=== PATIENT | female | born 1970 | race Caucasian/White ===

== ENCOUNTER → 2016-11-08 | Outpatient (REF) | payer BC ==
[2016-11-08 13:30] LABS: ALBUMIN 4.1 GM/DL (3.2-5.2); ALBUMIN/GLOBULIN RATIO 1.41 (1.00-1.93); ALKALINE PHOSPHATASE 55 U/L (45-117); ALT/SGPT 32 U/L (12-78); ANION GAP 5 MEQ/L (8-16); AST/SGOT 18 U/L (15-37); BILIRUBIN,TOTAL 0.4 MG/DL (0.2-1.0); BLOOD UREA NITROGEN 10 MG/DL (7-18); CALCIUM LEVEL 8.9 MG/DL (8.5-10.1); CARBON DIOXIDE LEVEL 28 MEQ/L (21-32); CHLORIDE LEVEL 108 MEQ/L (98-107); CREATININE FOR GFR 0.71 MG/DL (0.55-1.02); GLOMERULAR FILTRATION RATE > 60.0 (>58); GLUCOSE, FASTING 127 MG/DL (70-105); POTASSIUM SERUM 4.7 MEQ/L (3.5-5.1); SODIUM LEVEL 141 MEQ/L (136-145)
== END ==
LOC: M SFHCPLAZ 12:38
PROVIDERS: ATTEND Nurse Practitioner Family
DX: E11.9 Type 2 diabetes mellitus without complications (principal); E55.9 Vitamin D deficiency, unspecified

== ENCOUNTER → 2016-12-23 | Outpatient (CLI) | payer BC ==
--- NOTE | 2016-12-23 13:08 | REP ---
Clinical: Pain centered at the fifth metatarsal bone Technique: AP, lateral, bilateral oblique views right foot . Findings: The osseous structures and joint spaces are intact and normal. There is no evidence for acute fracture or dislocation. Surrounding soft tissues are unremarkable. No subcutaneous emphysema or radiodense foreign body. Impression: Age-related changes. No acute fracture or dislocation. Signed by Lopez Wells MD 12/23/2016 01:00 P
== END ==
LOC: M WUC 12:45
PROVIDERS: ATTEND Physician Assistant
DX: M79.671 Pain in right foot (principal)

== ENCOUNTER → 2017-02-07 | Outpatient (REF) | payer BC ==
[2017-02-07 12:22] LABS: ALBUMIN/GLOBULIN RATIO 1.48 (1.00-1.93); ALKALINE PHOSPHATASE 65 U/L (45-117); ALT/SGPT 40 U/L (12-78); ANION GAP 7 MEQ/L (8-16); AST/SGOT 18 U/L (15-37); BILIRUBIN,TOTAL 0.4 MG/DL (0.2-1.0); BLOOD UREA NITROGEN 9 MG/DL (7-18); CALCIUM LEVEL 8.9 MG/DL (8.5-10.1); CARBON DIOXIDE LEVEL 26 MEQ/L (21-32); CHLORIDE LEVEL 107 MEQ/L (98-107); CREATININE FOR GFR 0.79 MG/DL (0.55-1.02); GLOMERULAR FILTRATION RATE > 60.0 (>58); GLUCOSE, FASTING 178 MG/DL (70-105); POTASSIUM SERUM 4.8 MEQ/L (3.5-5.1); SODIUM LEVEL 140 MEQ/L (136-145); TOTAL PROTEIN 6.7 GM/DL (6.4-8.2)
== END ==
LOC: M SFHCPLAZ 07:54
PROVIDERS: ATTEND Nurse Practitioner Family
DX: E11.9 Type 2 diabetes mellitus without complications (principal); E55.9 Vitamin D deficiency, unspecified

== ENCOUNTER → 2017-05-09 | Outpatient (REF) | payer BC ==
[2017-05-09 12:21] LABS: ALBUMIN/GLOBULIN RATIO 1.48 (1.00-1.93); ALKALINE PHOSPHATASE 72 U/L (45-117); ALT/SGPT 35 U/L (12-78); ANION GAP 10 MEQ/L (8-16); AST/SGOT 19 U/L (15-37); BILIRUBIN,TOTAL 0.4 MG/DL (0.2-1.0); BLOOD UREA NITROGEN 13 MG/DL (7-18); CALCIUM LEVEL 8.9 MG/DL (8.5-10.1); CARBON DIOXIDE LEVEL 25 MEQ/L (21-32); CHLORIDE LEVEL 109 MEQ/L (98-107); CHOLESTEROL LEVEL 145 MG/DL (<200); CREATININE FOR GFR 0.73 MG/DL (0.55-1.02); FREE T4 0.99 NG/DL (0.76-1.46); GLOMERULAR FILTRATION RATE > 60.0 (>58); GLUCOSE, FASTING 143 MG/DL (70-105); POTASSIUM SERUM 4.5 MEQ/L (3.5-5.1); SODIUM LEVEL 144 MEQ/L (136-145); TOTAL PROTEIN 6.7 GM/DL (6.4-8.2); TRIGLYCERIDES LEVEL 80 MG/DL (<150)
== END ==
LOC: M SFHCPLAZ 08:08
PROVIDERS: ATTEND Nurse Practitioner Family
DX: E11.9 Type 2 diabetes mellitus without complications (principal); E78.2 Mixed hyperlipidemia

== ENCOUNTER → 2017-08-02 | Outpatient (REF) | payer BC ==
[2017-08-02 11:50] LABS: ALBUMIN 3.9 GM/DL (3.2-5.2); ALBUMIN/GLOBULIN RATIO 1.34 (1.00-1.93); ALKALINE PHOSPHATASE 88 U/L (45-117); ALT/SGPT 33 U/L (12-78); ANION GAP 4 MEQ/L (8-16); AST/SGOT 19 U/L (7-37); BILIRUBIN,TOTAL 0.5 MG/DL (0.2-1.0); BLOOD UREA NITROGEN 14 MG/DL (7-18); CALCIUM LEVEL 9.1 MG/DL (8.5-10.1); CARBON DIOXIDE LEVEL 29 MEQ/L (21-32); CHLORIDE LEVEL 106 MEQ/L (98-107); CREATININE FOR GFR 0.66 MG/DL (0.55-1.02); GLOMERULAR FILTRATION RATE > 60.0 (>58); GLUCOSE, FASTING 203 MG/DL (70-105); POTASSIUM SERUM 4.4 MEQ/L (3.5-5.1); SODIUM LEVEL 139 MEQ/L (136-145); TOTAL PROTEIN 6.8 GM/DL (6.4-8.2)
== END ==
LOC: M SFHCPLAZ 08:31
PROVIDERS: ATTEND Nurse Practitioner Family
DX: E11.9 Type 2 diabetes mellitus without complications (principal); E55.9 Vitamin D deficiency, unspecified

== ENCOUNTER → 2017-10-20 | Outpatient (CLI) | payer BC ==
[2017-10-20 17:54] LABS: ALBUMIN 4.5 GM/DL (3.2-5.2); ALBUMIN/GLOBULIN RATIO 1.67 (1.00-1.93); ALKALINE PHOSPHATASE 67 U/L (45-117); ALT/SGPT 28 U/L (12-78); ANION GAP 9 MEQ/L (8-16); AST/SGOT 20 U/L (7-37); BILIRUBIN,TOTAL 0.4 MG/DL (0.2-1.0); BLOOD UREA NITROGEN 18 MG/DL (7-18); CARBON DIOXIDE LEVEL 25 MEQ/L (21-32); CHLORIDE LEVEL 107 MEQ/L (98-107); CREATININE FOR GFR 0.69 MG/DL (0.55-1.02); GLOMERULAR FILTRATION RATE > 60.0 (>58); GLUCOSE, FASTING 107 MG/DL (70-100); POTASSIUM SERUM 4.2 MEQ/L (3.5-5.1); SODIUM LEVEL 141 MEQ/L (136-145); TOTAL PROTEIN 7.2 GM/DL (6.4-8.2)
[2017-10-20 19:31] LABS: ESTIMATED AVERAGE GLUCOSE 157 MG/DL (60-110); HEMOGLOBIN A1c 7.1 %
[2017-10-21 10:10] LABS: TOTAL 25(OH) VITAMIN D 50.5 NG/ML (30.0-100.0)
== END ==
LOC: M WUC 14:45
DX: E11.65 Type 2 diabetes mellitus with hyperglycemia (principal); E55.9 Vitamin D deficiency, unspecified

== ENCOUNTER → 2018-04-28 | Outpatient (CLI) | payer BC ==
[2018-04-28 18:05] LABS: ESTIMATED AVERAGE GLUCOSE 194 MG/DL (60-110); HEMOGLOBIN A1c 8.4 %
[2018-04-28 18:07] LABS: ALBUMIN 4.2 GM/DL (3.2-5.2); ALKALINE PHOSPHATASE 81 U/L (45-117); ALT/SGPT 58 U/L (12-78); ANION GAP 10 MEQ/L (8-16); AST/SGOT 31 U/L (7-37); BILIRUBIN,TOTAL 0.6 MG/DL (0.2-1.0); BLOOD UREA NITROGEN 9 MG/DL (7-18); CALCIUM LEVEL 9.3 MG/DL (8.5-10.1); CARBON DIOXIDE LEVEL 24 MEQ/L (21-32); CHLORIDE LEVEL 106 MEQ/L (98-107); CHOLESTEROL LEVEL 141 MG/DL (<200); CREATININE FOR GFR 0.76 MG/DL (0.55-1.30); GLOMERULAR FILTRATION RATE > 60.0 (>58); GLUCOSE, FASTING 90 MG/DL (70-100); HDL CHOLESTEROL 38 MG/DL (>40); LDL CHOLESTEROL 78.2 MG/DL (<100); NON-HDL-C 103 MG/DL; POTASSIUM SERUM 4.1 MEQ/L (3.5-5.1); SODIUM LEVEL 140 MEQ/L (136-145); TRIGLYCERIDES LEVEL 124 MG/DL (<150)
[2018-04-28 18:21] LABS: CREATININE, URINE 75.7 MG/DL; MALB URINE SIEMENS < 5.0 MG/L; MAU/CREAT RATIO 6.6 MCG/MG (0.0-30.0)
== END ==
LOC: M SMT 14:48
DX: E11.65 Type 2 diabetes mellitus with hyperglycemia (principal); E78.2 Mixed hyperlipidemia
CPT/HCPCS: 80053

== ENCOUNTER → 2018-04-28 | Outpatient (CLI) | payer BC ==
[2018-04-30 08:53] LABS: HEPATITIS B SURFACE ANTIBODY POSITIVE (POSITIVE)
== END ==
LOC: M SMT 14:44
DX: Z00.00 Encounter for general adult medical examination without abnormal findings (principal)
CPT/HCPCS: 86706

== ENCOUNTER → 2018-07-30 | Outpatient (CLI) | payer BC ==
[2018-07-30 17:52] LABS: ALBUMIN 4.3 GM/DL (3.2-5.2); ALBUMIN/GLOBULIN RATIO 1.48 (1.00-1.93); ALKALINE PHOSPHATASE 82 U/L (45-117); ALT/SGPT 38 U/L (12-78); ANION GAP 6 MEQ/L (8-16); AST/SGOT 20 U/L (7-37); BILIRUBIN,TOTAL 0.5 MG/DL (0.2-1.0); BLOOD UREA NITROGEN 12 MG/DL (7-18); CALCIUM LEVEL 9.3 MG/DL (8.5-10.1); CARBON DIOXIDE LEVEL 27 MEQ/L (21-32); CHLORIDE LEVEL 105 MEQ/L (98-107); CREATININE FOR GFR 0.76 MG/DL (0.55-1.30); ESTIMATED AVERAGE GLUCOSE 148 MG/DL (60-110); GLOMERULAR FILTRATION RATE > 60.0 (>58); GLUCOSE, FASTING 91 MG/DL (70-100); HEMOGLOBIN A1c 6.8 %; POTASSIUM SERUM 4.4 MEQ/L (3.5-5.1); SODIUM LEVEL 138 MEQ/L (136-145); TOTAL PROTEIN 7.2 GM/DL (6.4-8.2)
[2018-07-30 17:56] LABS: TOTAL 25(OH) VITAMIN D 24.1 NG/ML (30.0-100.0)
== END ==
LOC: M SMT 14:46
DX: E11.65 Type 2 diabetes mellitus with hyperglycemia (principal); E55.9 Vitamin D deficiency, unspecified
CPT/HCPCS: 80053

== ENCOUNTER → 2018-08-19 | Outpatient (REF) | payer BC ==
[2018-08-23 00:57] LABS: HPV HYBRID CAPTURE II Positive (Negative)
== END ==
LOC: M SFHCPLAZ 20:42
DX: Z12.4 Encounter for screening for malignant neoplasm of cervix (principal)
CPT/HCPCS: G0123

== ENCOUNTER → 2018-09-01 | Outpatient (CLI) | payer BC | LOC: M WHC 14:31 | DX: Z12.31 Encounter for screening mammogram for malignant neoplasm of breast (principal); Z78.0 Asymptomatic menopausal state | CPT/HCPCS: 77067 ==

== ENCOUNTER → 2019-02-21 | Outpatient (CLI) | payer BC ==
[2019-02-21 18:16] LABS: ALBUMIN 4.5 GM/DL (3.2-5.2); ALT/SGPT 37 U/L (12-78); BILIRUBIN,TOTAL 0.6 MG/DL (0.2-1.0); BLOOD UREA NITROGEN 14 MG/DL (7-18); CALCIUM LEVEL 10.2 MG/DL (8.5-10.1); CARBON DIOXIDE LEVEL 29 MEQ/L (21-32); CHLORIDE LEVEL 100 MEQ/L (98-107); CHOLESTEROL LEVEL 174 MG/DL (<200); CHOLESTEROL RISK RATIO 4.833 (<5); CREATININE FOR GFR 0.88 MG/DL (0.55-1.30); GLOMERULAR FILTRATION RATE > 60.0 (>51); GLUCOSE, FASTING 133 MG/DL (70-100); HDL CHOLESTEROL 36 MG/DL (>40); LDL CHOLESTEROL 119 MG/DL (<100); NON-HDL-C 138 MG/DL; POTASSIUM SERUM 4.9 MEQ/L (3.5-5.1); SODIUM LEVEL 137 MEQ/L (136-145); TOTAL PROTEIN 7.4 GM/DL (6.4-8.2); TRIGLYCERIDES LEVEL 94 MG/DL (<150)
[2019-02-21 18:26] LABS: MALB URINE SIEMENS 10.3 MG/L; MAU/CREAT RATIO 6.2 MCG/MG (0.0-30.0)
[2019-02-21 18:27] LABS: HEMOGLOBIN A1c 8.4 %
[2019-02-23 09:35] LABS: TOTAL 25(OH) VITAMIN D 34.4 NG/ML (30.0-100.0)
== END ==
LOC: M WUC 14:53
PROVIDERS: ATTEND Nurse Practitioner Family
DX: E11.65 Type 2 diabetes mellitus with hyperglycemia (principal); E78.2 Mixed hyperlipidemia; E55.9 Vitamin D deficiency, unspecified

== ENCOUNTER → 2019-05-27 | Outpatient (CLI) | payer BC ==
[~2019-05-27] MED LIST: ATOR1TAB19 PO; ESCI20TA PO; GLIM2TAB29 PO; KETO10TAB PO; OMEP-221 PO; TRUL0.5I SQ
[2019-05-27 17:03] LABS: ALBUMIN 4.2 GM/DL (3.2-5.2); ALT/SGPT 32 U/L (12-78); BILIRUBIN,TOTAL 0.4 MG/DL (0.2-1.0); BLOOD UREA NITROGEN 13 MG/DL (7-18); CALCIUM LEVEL 9.6 MG/DL (8.5-10.1); CARBON DIOXIDE LEVEL 28 MEQ/L (21-32); CHLORIDE LEVEL 105 MEQ/L (98-107); CHOLESTEROL LEVEL 163 MG/DL (<200); CHOLESTEROL RISK RATIO 3.975 (<5); CREATININE FOR GFR 0.82 MG/DL (0.55-1.30); GLOMERULAR FILTRATION RATE > 60.0 (>51); GLUCOSE, FASTING 91 MG/DL (70-100); HDL CHOLESTEROL 41 MG/DL (>40); LDL CHOLESTEROL 102 MG/DL (<100); NON-HDL-C 122 MG/DL; POTASSIUM SERUM 4.2 MEQ/L (3.5-5.1); SODIUM LEVEL 139 MEQ/L (136-145); TOTAL PROTEIN 6.8 GM/DL (6.4-8.2); TRIGLYCERIDES LEVEL 99 MG/DL (<150)
[2019-05-27 17:33] LABS: CREATININE, URINE 71.6 MG/DL; MALB URINE SIEMENS < 5.0 MG/L; MAU/CREAT RATIO 6.9 MCG/MG (0.0-30.0)
[2019-05-27 18:38] LABS: HEMOGLOBIN A1c 7.7 %
== END ==
LOC: M WUC 14:53
PROVIDERS: ATTEND Nurse Practitioner Family
DX: E11.65 Type 2 diabetes mellitus with hyperglycemia (principal); E78.2 Mixed hyperlipidemia

== ENCOUNTER 2019-06-12 11:42 | Emergency (ER) | payer BC ==
[~2019-06-12] VITALS: Ht 154.9 cm; Wt 71.5 kg
[2019-06-12] MEDS ORDERED: KETOROLAC 60 MG/2 ML VIAL (J1885) IM ONE (12:00)
--- NOTE | 2019-06-12 12:30 | REP ---
RIGHT ELBOW, FOUR VIEWS: There is no evidence of an acute fracture, dislocation or intrinsic bone disease. IMPRESSION: No fracture or dislocation. Electronically Signed by Valdez Willis MD 06/12/2019 06:47 P
--- NOTE | 2019-06-12 12:31 | REP ---
RIGHT FOREARM, TWO VIEWS: There is no evidence of an acute fracture, dislocation or intrinsic bone disease. IMPRESSION: No fracture or dislocation. Electronically Signed by Valdez Willis MD 06/12/2019 06:48 P
[2019-06-12] MEDS ORDERED: KETO10TAB PO (12:51)
[2019-06-12 12:59] VITALS: BP 120/81
== END 2019-06-12 13:02 | disposition home or self-care (01) ==
LOC: M ED 11:42
DX: S50.01XA Contusion of right elbow, initial encounter (principal); S50.11XA Contusion of right forearm, initial encounter; W17.89XA Other fall from one level to another, initial encounter; Y92.018 Other place in single-family (private) house as the place of occurrence of the external cause
CPT/HCPCS: 73080; 73090; 96372; 99283; J1885

== ENCOUNTER → 2019-08-26 | Outpatient (CLI) | payer BC ==
[2019-08-26 12:41] LABS: HEMOGLOBIN A1c 8.5 %
[2019-08-26 12:50] LABS: ALBUMIN 3.6 GM/DL (3.2-5.2); ALT/SGPT 30 U/L (12-78); BILIRUBIN,TOTAL 0.3 MG/DL (0.2-1.0); BLOOD UREA NITROGEN 9 MG/DL (7-18); CALCIUM LEVEL 9.4 MG/DL (8.5-10.1); CARBON DIOXIDE LEVEL 31 MEQ/L (21-32); CHLORIDE LEVEL 105 MEQ/L (98-107); CREATININE FOR GFR 0.72 MG/DL (0.55-1.30); GLOMERULAR FILTRATION RATE > 60.0 (>51); GLUCOSE, FASTING 145 MG/DL (70-100); POTASSIUM SERUM 4.5 MEQ/L (3.5-5.1); SODIUM LEVEL 140 MEQ/L (136-145); TOTAL PROTEIN 6.7 GM/DL (6.4-8.2)
[2019-08-26 12:59] LABS: TOTAL 25(OH) VITAMIN D 25.2 NG/ML (30.0-100.0)
== END ==
LOC: M WUC 09:24
PROVIDERS: ATTEND Nurse Practitioner Family
DX: E11.65 Type 2 diabetes mellitus with hyperglycemia (principal); E55.9 Vitamin D deficiency, unspecified

== ENCOUNTER 2019-09-08 09:56 | Day surgery (SDC) | payer BC ==
[~2019-09-08] VITALS: Ht 154.9 cm; Wt 69.9 kg
[~2019-09-08 09:56] MED LIST changes: +NS 1,000 ML IV ONE
[2019-09-08] MEDS ORDERED: PROPOFOL 200 MG/20 ML VIAL As Ordered ONE (10:37)
[2019-09-08] MEDS ORDERED: LIDOCAINE 2% INJ 100 MG/5 ML SDV (FOR ANES.) As Ordered ONE (10:37)
[2019-09-08] MEDS ORDERED: fentaNYL 100 MCG/2 ML INJECTION (J3010) As Ordered ONE (11:19)
--- NOTE | 2019-09-08 12:51 | ROOR ---
Patient Name: Benson Klein Procedure Date: 09/08/2019 11:49 AM Date of : 1970 Age: 49 Room: [facility] Gender: Female Note Status: Finalized Procedure: Upper GI endoscopy Indications: Dyspepsia, Heartburn, Suspected gastro-esophageal reflux disease Providers: Inocencio Morris MD Referring MD: Faina Norman NP Requesting Provider: Medicines: Monitored Anesthesia Care Complications: No immediate complications. Procedure: Pre-Anesthesia Assessment: - Prior to the procedure, a History and Physical was performed, and patient medications and allergies were reviewed. The patient is competent. The risks and benefits of the procedure and the sedation options and risks were discussed with the patient. All questions were answered and informed consent was obtained. Patient identification and proposed procedure were verified by the physician, the nurse and the anesthesiologist in the procedure room. Mental Status Examination: alert and oriented. Airway Examination: normal oropharyngeal airway and neck mobility. Respiratory Examination: clear to auscultation. CV Examination: normal. Prophylactic Antibiotics: The patient does not require prophylactic antibiotics. Prior Anticoagulants: The patient has taken no previous anticoagulant or antiplatelet agents. ASA Grade Assessment: II - A patient with mild systemic disease. After reviewing the risks and benefits, the patient was deemed in satisfactory condition to undergo the procedure. The anesthesia plan was to use monitored anesthesia care (MAC). Immediately prior to administration of medications, the patient was re-assessed for adequacy to receive sedatives. The heart rate, respiratory rate, oxygen saturations, blood pressure, adequacy of pulmonary ventilation, and response to care were monitored throughout the procedure. The physical status of the patient was re-assessed after the procedure. The Endoscope was introduced through the mouth, and advanced to the second part of duodenum. The upper GI endoscopy was accomplished without difficulty. The patient tolerated the procedure well. Findings: Two tongues of salmon-colored mucosa were present from 39 to 41 cm. No other visible abnormalities were present. The maximum longitudinal extent of these esophageal mucosal changes was 2 cm in length. Biopsies were taken with a cold forceps for histology. Verification of patient identification for the specimen was done by the physician and nurse using the patient's name, date and medical record number. Estimated blood loss was minimal. Scattered moderate inflammation characterized by erythema, friability and granularity was found in the gastric antrum. Biopsies were taken with a cold forceps for Helicobacter pylori testing. Scattered moderate inflammation characterized by erosions, friability and granularity was found in the duodenal bulb and in the second portion of the duodenum. Biopsies for histology were taken with a cold forceps for evaluation of celiac disease. Impression: - [place]-colored mucosa suspicious for short-segment Lr's esophagus. Biopsied. - Gastritis. Biopsied. - Duodenitis. Biopsied. Recommendation: - Patient has a contact number available for emergencies. The signs and symptoms of potential delayed complications were discussed with the patient. Return to normal activities tomorrow. Written discharge instructions were provided to the patient. - Resume previous diet. - Follow an antireflux regimen. - Use Prilosec (omeprazole) 40 mg PO Daily - to be taken naturopathic oncology provider on empty stomach. - Await pathology results. - Repeat upper endoscopy in 1 year to evaluate the response to therapy and for surveillance based on pathology results. - Telephone GI clinic for pathology results in 2 weeks. - Return to primary care physician. Inocencio Morris MD Inocencio Morris MD 09/08/2019 12:50:39 PM Electronically signed by Inocencio Morris MD Number of Addenda: 0 Note Initiated On: 09/08/2019 11:49 AM Estimated Blood Loss: Estimated blood loss was minimal.
--- NOTE | 2019-09-08 12:53 | ROOR ---
Patient Name: Benson Klein Procedure Date: 09/08/2019 11:49 AM Date of : 1970 Age: 49 Room: [facility] Gender: Female Note Status: Finalized Procedure: Colonoscopy Indications: Screening for colorectal malignant neoplasm Providers: Inocencio Morris MD Referring MD: Faina Norman NP Requesting Provider: Medicines: Monitored Anesthesia Care Complications: No immediate complications. Procedure: Pre-Anesthesia Assessment: - Prior to the procedure, a History and Physical was performed, and patient medications and allergies were reviewed. The patient is competent. The risks and benefits of the procedure and the sedation options and risks were discussed with the patient. All questions were answered and informed consent was obtained. Patient identification and proposed procedure were verified by the physician, the nurse and the anesthesiologist in the procedure room. Mental Status Examination: alert and oriented. Airway Examination: normal oropharyngeal airway and neck mobility. Respiratory Examination: clear to auscultation. CV Examination: normal. Prophylactic Antibiotics: The patient does not require prophylactic antibiotics. Prior Anticoagulants: The patient has taken no previous anticoagulant or antiplatelet agents. ASA Grade Assessment: II - A patient with mild systemic disease. After reviewing the risks and benefits, the patient was deemed in satisfactory condition to undergo the procedure. The anesthesia plan was to use monitored anesthesia care (MAC). Immediately prior to administration of medications, the patient was re-assessed for adequacy to receive sedatives. The heart rate, respiratory rate, oxygen saturations, blood pressure, adequacy of pulmonary ventilation, and response to care were monitored throughout the procedure. The physical status of the patient was re-assessed after the procedure. The Colonoscope was introduced through the anus and advanced to the terminal ileum, with identification of the appendiceal orifice and IC valve. The colonoscopy was performed without difficulty. The patient tolerated the procedure well. The quality of the bowel preparation was good. The terminal ileum, ileocecal valve, appendiceal orifice, and rectum were photographed. Scope insertion time was 3 minutes. Scope withdrawal time was 9 minutes. The total duration of the procedure was 12 minutes. Findings: The perianal and digital rectal examinations were normal. The terminal ileum appeared normal. Four sessile polyps were found in the recto-sigmoid colon and ascending colon. The polyps were 6 to 10 mm in size. These polyps were removed with a cold snare. Resection and retrieval were complete. Verification of patient identification for the specimen was done by the physician and nurse using the patient's name, date and medical record number. Estimated blood loss was minimal. Multiple small and large-mouthed diverticula were found from sigmoid to descending colon. There was no evidence of diverticular bleeding. Non-bleeding external and internal hemorrhoids were found during retroflexion. The hemorrhoids were medium-sized. Impression: - The examined portion of the ileum was normal. - Four 6 to 10 mm polyps at the recto-sigmoid colon and in the ascending colon, removed with a cold snare. Resected and retrieved. - Moderate diverticulosis from sigmoid to descending colon. There was no evidence of diverticular bleeding. - Non-bleeding external and internal hemorrhoids. Recommendation: - Patient has a contact number available for emergencies. The signs and symptoms of potential delayed complications were discussed with the patient. Return to normal activities tomorrow. Written discharge instructions were provided to the patient. - High fiber diet. - Continue present medications. - Await pathology results. - Repeat colonoscopy in 3 - 5 years for surveillance based on pathology results. - Telephone GI clinic for pathology results in 2 weeks. - Return to primary care physician. Inocencio Morris MD Inocencio Morris MD 09/08/2019 12:53:07 PM Electronically signed by Inocencio Morris MD Number of Addenda: 0 Note Initiated On: 09/08/2019 11:49 AM Estimated Blood Loss: Estimated blood loss was minimal.
[2019-09-08 13:00] VITALS: BP 166/88
== END 2019-09-08 13:15 | disposition home or self-care (01) ==
LOC: M OPP 09:56
PROVIDERS: ATTEND Internal Medicine Gastroenterology
DX: Z12.11 Encounter for screening for malignant neoplasm of colon (principal); K64.8 Other hemorrhoids; K63.5 Polyp of colon; K57.30 Diverticulosis of large intestine without perforation or abscess without bleeding; K22.8 Other specified diseases of esophagus; K29.70 Gastritis, unspecified, without bleeding; K29.80 Duodenitis without bleeding; R10.13 Epigastric pain; E11.9 Type 2 diabetes mellitus without complications; Z79.84 Long term (current) use of oral hypoglycemic drugs; Z79.899 Other long term (current) drug therapy; Z88.8 Allergy status to other drugs, medicaments and biological substances
CPT/HCPCS: 43239; 45385; 88305; J3010

== ENCOUNTER → 2019-10-05 | Outpatient (CLI) | payer BC ==
[~2019-10-05] MED LIST changes: -NS 1,000 ML IV ONE
--- NOTE | 2019-10-05 17:28 | REPMRS ---
Patient History The patient states she had a clinical breast exam in 2019. Family history of breast cancer at age 50 or over in maternal aunt. Digital Woman Screen Mammo: October 05, 2019 - Exam #: [id number] Bilateral CC and MLO view(s) were taken. Technologist: Destiny Rodríguez, Technologist Prior study comparison: September 01, 2018, bilateral digital woman screen mammo performed at [facility] and Breast [facility] [place]. March 23, 2009, bilateral digital woman screen mammo, performed at [facility]. FINDINGS: There are scattered fibroglandular densities. There has been no change in the appearance of the mammogram from the prior studies. There is a mild amount of scattered fibroglandular density which is fairly symmetric. There is no interval development of dominant mass, architectural distortion, or grouped microcalcification suggestive of malignancy. 3-D tomosynthesis shows no additional findings. Assessment: BI-RADS/ACR category 1 mammogram. Negative Mammogram. Recommendation Routine screening mammogram of both breasts in 1 year (for women over age 40). This patient's Lifetime Breast Cancer Risk is estimated at 11.5 %. This mammogram was interpreted with the aid of an FDA-approved computer-aided dectection system. Electronically Signed By: Torres Bojorquez MD 10/05/19 [id number]
== END ==
LOC: M WHC 15:23
PROVIDERS: ATTEND Nurse Practitioner Family
DX: Z12.31 Encounter for screening mammogram for malignant neoplasm of breast (principal); Z80.3 Family history of malignant neoplasm of breast

== ENCOUNTER → 2019-12-27 | Outpatient (CLI) | payer BC ==
[2019-12-27 17:14] LABS: BLOOD UREA NITROGEN 13 MG/DL (7-18); CALCIUM LEVEL 9.4 MG/DL (8.5-10.1); CARBON DIOXIDE LEVEL 28 MEQ/L (21-32); CHLORIDE LEVEL 107 MEQ/L (98-107); GLOMERULAR FILTRATION RATE > 60.0 (>51); GLUCOSE, FASTING 107 MG/DL (70-100); POTASSIUM SERUM 4.2 MEQ/L (3.5-5.1); SODIUM LEVEL 139 MEQ/L (136-145)
[2019-12-27 17:35] LABS: HEMOGLOBIN A1c 10.4 %
[2019-12-28 10:01] LABS: TOTAL 25(OH) VITAMIN D 27.9 NG/ML (30.0-100.0)
== END ==
LOC: M WUC 15:00
PROVIDERS: ATTEND Nurse Practitioner Family
DX: E11.65 Type 2 diabetes mellitus with hyperglycemia (principal); E55.9 Vitamin D deficiency, unspecified

== ENCOUNTER → 2020-03-23 | Outpatient (REF) | payer BC ==
[2020-03-23 18:14] LABS: HEMOGLOBIN A1c 10.2 %
[2020-03-23 18:17] LABS: ALBUMIN 4.1 GM/DL (3.2-5.2); ALT/SGPT 32 U/L (12-78); BILIRUBIN,TOTAL 0.3 MG/DL (0.2-1.0); BLOOD UREA NITROGEN 17 MG/DL (7-18); CALCIUM LEVEL 9.6 MG/DL (8.5-10.1); CARBON DIOXIDE LEVEL 31 MEQ/L (21-32); CHLORIDE LEVEL 102 MEQ/L (98-107); CREATININE FOR GFR 0.77 MG/DL (0.55-1.30); GLOMERULAR FILTRATION RATE > 60.0 (>51); GLUCOSE, FASTING 204 MG/DL (70-100); POTASSIUM SERUM 5.1 MEQ/L (3.5-5.1); SODIUM LEVEL 134 MEQ/L (136-145)
[2020-03-23 18:24] LABS: MALB URINE SIEMENS < 5.0 MG/L; MAU/CREAT RATIO 33.3 MCG/MG (0.0-30.0); TOTAL 25(OH) VITAMIN D 45.5 NG/ML (30.0-100.0)
== END ==
LOC: M PLALAB 14:41
PROVIDERS: ATTEND Nurse Practitioner Family
DX: E11.65 Type 2 diabetes mellitus with hyperglycemia (principal); E55.9 Vitamin D deficiency, unspecified

== ENCOUNTER → 2020-04-18 | Outpatient (REF) | payer BC ==
[2020-06-24 15:29] LABS: GLUCOSE, FASTING SEE SEPARATE REPORT MG/DL
[2020-06-24 15:30] LABS: MALB URINE SIEMENS SEE SEPARATE REPORT MG/L
== END ==
LOC: M SFHCPLAZ 10:15
PROVIDERS: ATTEND Nurse Practitioner Family
DX: E11.9 Type 2 diabetes mellitus without complications (principal)

== ENCOUNTER → 2020-05-31 | Outpatient (REF) | payer BC ==
[2020-05-31 18:42] LABS: APPEARANCE, URINE CLEAR (CLEAR); BACTERIA, URINE AUTO NEGATIVE (NEGATIVE); BILIRUBIN, URINE AUTO NEGATIVE (NEGATIVE); BLOOD, URINE BLOOD NEGATIVE (NEGATIVE); COLOR, URINE STRAW (YELLOW); GLUCOSE, URINE (UA) AUTO 3+ mg/dL (NEGATIVE); KETONE, URINE AUTO NEGATIVE (NEGATIVE); LEUKOCYTE ESTERASE, URINE AUTO NEGATIVE (NEGATIVE); NITRITE, URINE AUTO NEGATIVE (NEGATIVE); PROTEIN, URINE AUTO NEGATIVE (NEGATIVE); RBC, URINE AUTO 0 /HPF (0-3); SPECIFIC GRAVITY URINE AUTO 1.001 (1.002-1.035); SQUAMOUS EPITHELIAL CELL UR AU 0 /HPF (0-6); UROBILINOGEN, URINE AUTO 0.2 mg/dL (0.0-2.0); WBC, URINE AUTO 0 /HPF (0-3)
== END ==
LOC: M LAB REF 16:30
PROVIDERS: ATTEND Physician Assistant Medical
DX: N39.0 Urinary tract infection, site not specified (principal)

== ENCOUNTER → 2020-07-13 | Outpatient (CLI) | payer BC ==
[~2020-07-13] MED LIST changes: -ESCI20TA PO; +ESCI20TA16 PO
[2020-07-13 17:47] LABS: ALBUMIN 4.3 GM/DL (3.2-5.2); ALT/SGPT 32 U/L (12-78); BILIRUBIN,TOTAL 0.6 MG/DL (0.2-1.0); BLOOD UREA NITROGEN 11 MG/DL (7-18); CALCIUM LEVEL 9.8 MG/DL (8.5-10.1); CARBON DIOXIDE LEVEL 30 MEQ/L (21-32); CHLORIDE LEVEL 102 MEQ/L (98-107); CREATININE FOR GFR 0.69 MG/DL (0.55-1.30); GLOMERULAR FILTRATION RATE > 60.0 (>51); GLUCOSE, FASTING 185 MG/DL (70-100); POTASSIUM SERUM 4.9 MEQ/L (3.5-5.1); SODIUM LEVEL 134 MEQ/L (136-145); TOTAL PROTEIN 7.2 GM/DL (6.4-8.2)
[2020-07-13 17:54] LABS: HEMOGLOBIN A1c 10.5 %
== END ==
LOC: M PLALAB 14:33
PROVIDERS: ATTEND Nurse Practitioner Family
DX: E11.65 Type 2 diabetes mellitus with hyperglycemia (principal); E78.2 Mixed hyperlipidemia

== ENCOUNTER → 2020-10-06 | Outpatient (REF) | payer BC ==
[2020-10-06 16:35] LABS: CREATININE, URINE 58.2 MG/DL; MALB URINE SIEMENS < 5.0 MG/L; MAU/CREAT RATIO 8.5 MCG/MG (0.0-30.0)
[2020-10-06 17:20] LABS: HEMOGLOBIN A1c 11.7 %
[2020-10-06 17:24] LABS: ALBUMIN 3.9 GM/DL (3.2-5.2); ALT/SGPT 31 U/L (12-78); BILIRUBIN,TOTAL 0.3 MG/DL (0.2-1.0); BLOOD UREA NITROGEN 16 MG/DL (7-18); CALCIUM LEVEL 9.3 MG/DL (8.5-10.1); CARBON DIOXIDE LEVEL 29 MEQ/L (21-32); CHLORIDE LEVEL 101 MEQ/L (98-107); CREATININE FOR GFR 0.92 MG/DL (0.55-1.30); GLOMERULAR FILTRATION RATE > 60.0 (>51); GLUCOSE, FASTING 451 MG/DL (70-100); POTASSIUM SERUM 4.7 MEQ/L (3.5-5.1); SODIUM LEVEL 135 MEQ/L (136-145); TOTAL 25(OH) VITAMIN D 42.6 NG/ML (30.0-100.0); TOTAL PROTEIN 6.4 GM/DL (6.4-8.2)
== END ==
LOC: M PLALAB 14:04
PROVIDERS: ATTEND Nurse Practitioner Family
DX: E11.65 Type 2 diabetes mellitus with hyperglycemia (principal); E55.9 Vitamin D deficiency, unspecified

== ENCOUNTER → 2020-11-07 | Outpatient (REF) | payer BC ==
[2020-11-07 14:29] LABS: ALBUMIN 4.4 GM/DL (3.2-5.2); ALT/SGPT 34 U/L (12-78); BILIRUBIN,TOTAL 0.4 MG/DL (0.2-1.0); BLOOD UREA NITROGEN 15 MG/DL (7-18); CALCIUM LEVEL 9.6 MG/DL (8.5-10.1); CARBON DIOXIDE LEVEL 25 MEQ/L (21-32); CHLORIDE LEVEL 101 MEQ/L (98-107); CREATININE FOR GFR 0.82 MG/DL (0.55-1.30); GLOMERULAR FILTRATION RATE > 60.0 (>51); GLUCOSE, FASTING 252 MG/DL (70-100); HEMOGLOBIN A1c 11.1 %; POTASSIUM SERUM 4.7 MEQ/L (3.5-5.1); SODIUM LEVEL 136 MEQ/L (136-145)
== END ==
LOC: M PLALAB 11:13
PROVIDERS: ATTEND Nurse Practitioner Family
DX: E11.65 Type 2 diabetes mellitus with hyperglycemia (principal)

== ENCOUNTER → 2020-11-13 | Outpatient (CLI) | payer BC ==
[~2020-11-13] MED LIST changes: +ESCI5SOL3 PO; +OZEM2INJ SC
== END ==
LOC: M LABSMTC 11:06
PROVIDERS: ATTEND Anesthesiology
DX: Z01.818 Encounter for other preprocedural examination (principal); Z11.52 Encounter for screening for COVID-19

== ENCOUNTER → 2020-11-16 | Outpatient (REF) | payer BC | LOC: M SFHCPLAZ 12:58 | PROVIDERS: ATTEND Nurse Practitioner Family | DX: Z12.4 Encounter for screening for malignant neoplasm of cervix (principal) | CPT/HCPCS: 87624; G0123 ==

== ENCOUNTER 2020-11-18 06:45 | Day surgery (SDC) | payer BC ==
[~2020-11-18] VITALS: Ht 154.9 cm; Wt 68.9 kg
--- OUTSIDE RECORDS SUMMARY | 2020-11-18 06:49 | CCD ---
Author Author [facility] Organization [facility] Address Unknown Phone Unavailable Care Team Providers Care Rubbish Collector Name Role Phone Faina Norman PROBLEMS Type Condition ICD9-CM Code [id number] Code Onset Dates Condition S tatus W/U Status Risk SNOMED Code Notes Problem Vitamin D deficiency E55.9 Active confirmed 29253087 Problem Mixed hyperlipidemia E78.2 Active confirmed 352206961 Problem Dysmetabolic syndrome X E88.81 Active confirmed 740215168 Problem Type 2 diabetes mellitus wit h hyperglycemia, without long-term current use of insulin E11.65 Active confirmed 80139899 Problem Gastroesophageal reflux disease without esophagitis K21.9 Active confirmed 467460324 Problem Influenza vaccination declined Z28.21 Active confir med 888239630 Problem Non morbid obesity due to excess calories E66.09 Active confirmed 466666834 Problem Allergic rhinitis, unspecified allergic rhinitis type J30.9 Active confirmed 98393304 Problem DM w/o complication type II E11.9 Active confirmed 07908202 Problem Pain, joint, multiple sites M25.50 Active confirmed 76748333 Problem Anxiety F41.9 Active confirmed 16266989 ALLERGIES Allergen (clinical drug ingredient) Drug/Non Drug Allergy do cumented on EMR Reaction Allergy Type Onset Date Status Dulaglutide nausea Drug Allergy Active metformin Metformin HCl([facility] Code:[address]-10) diarrhea Drug Gabriel rgy Active ENCOUNTERS from 1970 to 2020-11-12 Encounter Location Date Provider Diagnosis [address] [address] 16 Oct, 2 021 Faina Norman Type 2 diabetes mellitus with hyperglycemia, without long-term current use of insulin E11.65 ; Mixed hyperlipidemia E78.2 ; Gastroesophageal reflux disease without esophagitis K21.9 ; Vitamin D deficiency E55.9 and Anxiety F41.9 IMMUNIZATIONS Vaccine Route Administration Date Status COVID-19 dose #1 given elsewhere Unspecified Unknown Oct 07, 2020 Administered Influenza 18 yrs & older Flublok Unknown Oct 07, 2020 Administered Influenza 18 yrs & older Flublok Unknown Jul 24, 2018 Administered TDAP 0.5mL (Boostrix) Unknown Jul 28, 2015 Administer ed Influenza 6mo & up Fluzone Unknown Jul 23, 2017 Admin istered Influenza 6mo & up Fluzone Unknown Jul 16, 2017 Admin istered Influenza 6mo & up Fluzone Unknown Jun 29, 2016 Admin istered Influenza 6mo & up Fluzone Unknown Jul 28, 2015 Admin istered Influenza 6mo & up Fluzone Unknown Jul 06, 2014 Admin istered SOCIAL HISTORY Tobacco Use: Social History Observation Description Date Details (start date - stop date) Former Smoker Sex Assigned At : Social History Observation Description Sex Assigned At Unknown Education: Question Answer Notes Level of Education: High School Audit Question Answer Notes Total Score: 0 Interpretation: Alcohol Education Language: Question Answer Notes Languages spoken: Nicarag[place] Jehovah'S Witness: Question Answer Notes [employer] Sexual Hx: Question Answer Notes Had sex in the last 12 months (vaginal, oral, or anal)? Yes Have you ever had an STD? No with Men only Use protection? No Drug and Alcohol Question Answer Notes Total Score: 0 Interpretation: No problems reported Alcohol Screening: Question Answer Notes Did you have a drink containing alcohol in the past year? No Points 0 Interpretation Negative BMI Care Goal Follow-Up Question Answer Notes Above Normal BMI Follow-Up Giving encouragement to exercise Tobacco Use: Question Answer Notes Are you a: former smoker How long has it been since you last smoked? 1-5 years REASON FOR REFERRAL No Information VITAL SIGNS Weight 157 lbs Oct, Height 61.25 in Oct, BMI 29.42 kg/m2 Oct, Heart Rate 79 /min Oct, Respiratory Rate 20 /min Oct, Temperature 98 degrees Fahrenheit Oct, Oximetry 98 Oct, Blood pressure systolic 110 mm Hg Oct, Blood pressure diastolic 70 mm Hg Oct, MEDICATIONS Medication SIG (Take, Route, Frequency, Duration) Notes Start Da te End Date Status Levemir FlexTouch 100 UNIT/ML 10 units Subcutaneous Daily for 90 day(s) Oct, Active Pen [place] 12/06" 31G X 5 MM dx e11.65 subcutaneously DAILY with levemir, and weekly with ozempic for 90 day(s) Active Ergocalciferol 1.25 MG (66131 UT) 1 capsule Orally weekly with meal Active Naprosyn 500 MG 1 tablet with food or milk a s needed Orally every 12 hrs for 30 day(s) Oct, Active Blood Glucose Test - as directed In Vitro Daily Dx:E11.9 for 30 day(s ) Active Lancets - as directed intradermally Daily DX:E11.( for 30 day(s) Active Escitalopram Oxalate 20 MG 1 tab Orally Once a day Active Pantoprazole Sodium 40 MG 1 tablet Orally Once a day Active Ozempic (0.25 or 0.5 MG/DOSE) 2 MG/1.5ML 0.5mg Subcuta neous once weekly x 4 weeks for 30 Days Active Aspirin Adult Low Dose 81 MG 1 tablet Orally Once a day Active Multivitamins 1 tab Orally daily Act alisa Glimepiride 2 MG 1 tablet with meals Orally twice a day Active Acetaminophen 500 mg 1-2 as needed Orally every 8 hrs for 30 da y(s) May, Active Vitamin D 1000 UNIT 2 tabs with meal Orally Once a day Active Atorvastatin Calcium 10 MG 1 tablet Orally Once a day Active Blood Glucose System [place] - as directed _ Dx:E11.9 for 30 day(s) Active PROCEDURES No Information RESULTS No Results REASON FOR VISIT 4-6WK F/U MEDICAL (GENERAL) HISTORY Type Description Date Medical History reflux Medical History impaired fasting glucose/ metabolic synd mellissa Medical History Esophageal reflux/ Hiatal hernia Medical History vitamin D deficiency Medical History hyperlipidemia, mixed Medical History Type 2 diabetes Surgical History tubal 1998 Surgical History colonoscopy with polyp resection, adenom atous 09/10 Goals Section No Information Health Concerns No Information MEDICAL EQUIPMENT No Information MENTAL STATUS No Information FUNCTIONAL STATUS No Information ASSESSMENTS Encounter Date Diagnosis Assessment Notes Treatment Notes Treatm ent Clinical Notes Oct, Type 2 diabetes mellitus wit h hyperglycemia, without long-term current use of insulin (ICD-10 - E11.65) advised on administration and side effects of medication prescribed and pt verbalized understanding. was referred to [facility], add referral to RD Oct, Mixed hyperlipidemia (ICD-10 - E78.2) due for lipids Oct, Gastroesophageal reflux dise ase without esophagitis (ICD-10 - K21.9) is scheduled for EGD on 11/18 and GI f/up Oct, Vitamin D deficiency (ICD-10 - E55.9) Oct, Anxiety (ICD-10 - F41.9) PLAN OF TREATMENT Medication Medication Name Sig Start Date Stop Date Escitalopram Oxalate 20 MG 1 tab Orally Once a day Vitamin D 1000 UNIT 2 tabs with meal Orally Once a day Glimepiride 2 MG 1 tablet with meals Orally twice a day Atorvastatin Calcium 10 MG 1 tablet Orally Once a day Levemir FlexTouch 100 UNIT/ML 10 units Subcutaneous Daily fo r 90 day(s) Oct, Ozempic (0.25 or 0.5 MG/DOSE) 2 MG/1.5ML 0.5mg Subcuta neous once weekly x 4 weeks for 30 Days Ergocalciferol 1.25 MG (94312 UT) 1 capsule Orally weekly with m eal Pen [place] 12/06" 31G X 5 MM dx e11.65 subcutaneously DAILY with levemir, and weekly with ozempic for 90 day(s) Pantoprazole Sodium 40 MG 1 tablet Orally Once a day Treatment Notes Assessment Notes Clinical Notes Type 2 diabetes mellitus with hyperglyce natasha, without long-term current use of insulin advised on administration and side effec ts of medication prescribed and pt verbalized understanding. was referred to OANH Ayoub, add referral to RD Mixed hyperlipidemia due for lipids Gastroesophageal reflux disease without esophagitis is scheduled for EGD on 11/18 and GI f/up Future Test Test Name Order Date LIPID PANEL (CARDIAC RISK) [id number] Comprehensive Metabolic Profile (CMP) [id number] HEMOGLOBIN A1c [id number] VITAMIN D 25-HYDROXY [id number] Next Appt Details next avail for [employer] MARINE Reason:pap Provider Name:Faina Norman, 2020-11-16 07:3 0:00 AM, [facility] [place], [address], Provider Name:Faina Norman 2020-12-13 04:0 0:00 PM, [address] [place], [address], Follow Up:next avail for GYNpap Insurance Providers Payer Name Payer Address Payer Phone Insured Name Patient Relati onship to Insured Coverage Start Date Coverage End Date BCBS ALEXIA MCKEON PPO [phone] [facility] [place] [facility] [id number] [address] self
--- OUTSIDE RECORDS SUMMARY | 2020-11-18 06:50 | CCD ---
Author Author [facility] Organization [facility] Address Unknown Phone Unavailable Care Team Providers Care Information Security Officer Name Role Phone JanYannick doss Unavailable PROBLEMS Type Condition ICD9-CM Code [id number] Code Onset Dates Condition S tatus SNOMED Code Notes Problem Vitamin D deficiency E55.9 Active 23781947 Problem Mixed hyperlipidemia E78.2 Active 278679661 Problem Dysmetabolic syndrome X E88.81 Active 97864797 7 Problem Type 2 diabetes mellitus wit h hyperglycemia, without long-term current use of insulin E11.65 Active 23798168 Problem Gastroesophageal reflux disease without esophagitis K21.9 Active 788420871 Problem Influenza vaccination declined Z28.21 Active 3 20184382 Problem Non morbid obesity due to excess calories E66.09 Active 519804906 Problem Allergic rhinitis, unspecified allergic rhinitis type J30.9 Active 62618579 Problem DM w/o complication type II E11.9 Active 4405 4006 Problem Pain, joint, multiple sites M25.50 Active 3567 8005 Problem Anxiety F41.9 Active 94221508 ALLERGIES Allergen (clinical drug ingredient) Drug/Non Drug Allergy do cumented on EMR Reaction Allergy Type Onset Date Status Dulaglutide nausea Drug Allergy Active metformin Metformin HCl([facility] Code:[address]-54) diarrhea Drug Gabriel rgy Active ENCOUNTERS from 1969 to 2020-10-08 Encounter Location Date Provider Diagnosis [facility] [address] [address] [place] [address] 14 Sep, 2020 Gerardo Baires IMMUNIZATIONS Vaccine Route Administration Date Status COVID-19(given elsewhere) Unspecified Unknown Oct 07 Administered Influenza (18 yrs & older) Flublok Unknown Oct 07, 2020 Administered Influenza (18 yrs & older) Flublok Unknown Jul 24, 2018 Administered TDAP 0.5mL (Boostrix) Unknown Jul 28, 2015 Administer ed Influenza (6mo & up) Fluzone Unknown Jul 23, 2017 Adm inistered Influenza (6mo & up) Fluzone Unknown Jul 16, 2017 Adm inistered Influenza (6mo & up) Fluzone Unknown Jun 29, 2016 Adm inistered Influenza (6mo & up) Fluzone Unknown Jul 28, 2015 Adm inistered Influenza (6mo & up) Fluzone Unknown Jul 06, 2014 Adm inistered SOCIAL HISTORY Tobacco Use: Social History Observation Description Date Details (start date - stop date) Former Smoker Sex Assigned At : Social History Observation Description Sex Assigned At Unknown Education: Question Answer Notes Level of Education: High School Audit Question Answer Notes Total Score: 0 Interpretation: Alcohol Education Language: Question Answer Notes Languages spoken: French Gnosticist: Question Answer Notes Gnosticist 08 Roman Catholic Sexual Hx: Question Answer Notes Had sex [...] REASON FOR REFERRAL No Information VITAL SIGNS No information MEDICATIONS Medication SIG (Take, Route, Frequency, Duration) Notes Start Da te End Date Status Naprosyn 500 MG 1 tablet with food or milk a s needed Orally every 12 hrs for 30 day(s) Oct, Active Atorvastatin Calcium 10 MG 1 tablet Orally Once a day Active Lancets - as directed intradermally Daily DX:E11.( for 30 day(s) Active Vitamin D 1000 UNIT 2 tabs with meal Orally Once a day Active Glimepiride 2 MG 1 tablet with meals Orally twice a day Active Omeprazole 40 MG 1 capsule Orally Once a day Active Acetaminophen 500 mg 1-2 as needed Orally every 8 hrs for 30 da y(s) May, Active Multivitamins 1 tab Orally daily Act alisa Blood Glucose Test - as directed In Vitro Daily Dx:E11.9 for 30 day(s ) Active Aspirin Adult Low Dose 81 MG 1 tablet Orally Once a day Active Blood Glucose System [place] - as directed _ Dx:E11.9 for 30 day(s) Active Pen [place] 3/16" 31G X 5 MM dx e11.65 subcutaneously weekly for 90 day(s) Sep, Active Escitalopram Oxalate 20 MG 1 tab Orally Once a day Active Ergocalciferol 1.25 MG (57184 UT) 1 capsule Orally weekly with meal Active Ozempic (0.25 or 0.5 MG/DOSE) 2 MG/1.5ML 0.25mg Subcut aneous once weekly x 4 weeks, then 0.5mg weekly for 90 day(s) Sep, Active PROCEDURES No Information RESULTS No Results REASON FOR VISIT blood sugar >400 MEDICAL (GENERAL) HISTORY Type Description Date Medical History reflux Medical History impaired fasting glucose/ metabolic synd mellissa Medical History Esophageal reflux/ Hiatal hernia Medical History vitamin D deficiency Medical History hyperlipidemia, mixed Medical History Type 2 diabetes Surgical History tubal 1999 Surgical History colonoscopy with polyp resection, adenom atous 09/10 Goals Section No Information Health Concerns No Information MEDICAL EQUIPMENT No Information MENTAL STATUS No Information FUNCTIONAL STATUS No Information ASSESSMENTS No Information PLAN OF TREATMENT Medication Medication Name Sig Start Date Stop Date Omeprazole 40 MG 1 capsule Orally Once a day Escitalopram Oxalate 20 MG 1 tab Orally Once a day Glimepiride 2 MG 1 tablet with meals Orally twice a day Vitamin D 1000 UNIT 2 tabs with meal Orally Once a day Atorvastatin Calcium 10 MG 1 tablet Orally Once a day Ergocalciferol 1.25 MG (13188 UT) 1 capsule Orally weekly with m eal Ozempic (0.25 or 0.5 MG/DOSE) 2 MG/1.5ML 0.25mg Subcut aneous once weekly x 4 weeks, then 0.5mg weekly for 90 day(s) Sep, Pen [place] 316" 31G X 5 MM dx e11.65 subcutaneously weekly for 90 day(s) Sep, Next Appt Details Provider Name:Faina Norman, 2020-11-08 04:0 0:00 PM, [address] [place], [address], Insurance Providers Payer Name Payer Address Payer Phone Insured Name Patient Relati onship to Insured Coverage Start Date Coverage End Date BCBS ALEXIA MCKE[facility] [phone] [facility] [place] [id number] CRISELDA KLEIN self
--- OUTSIDE RECORDS SUMMARY | 2020-11-18 06:50 | CCD ---
Author Author [facility] Organization [facility] Address Unknown Phone Unavailable Care Team Providers Care Welfare Manager Name Role Phone Faina Norman PROBLEMS Type Condition ICD9-CM Code [id number] Code Onset Dates Condition S tatus SNOMED Code Notes Problem Vitamin D deficiency E55.9 Active 37326328 Problem Mixed hyperlipidemia E78.2 Active 967599739 Problem Dysmetabolic syndrome X E88.81 Active 92366479 7 Problem Type 2 diabetes mellitus wit h hyperglycemia, without long-term current use of insulin E11.65 Active 05534869 Problem Gastroesophageal reflux disease without esophagitis K21.9 Active 827425283 Problem Influenza vaccination declined Z28.21 Active 3 58147457 Problem Non morbid obesity due to excess calories E66.09 Active 182287788 Problem Allergic rhinitis, unspecified allergic rhinitis type J30.9 Active 37066289 Problem DM w/o complication type II E11.9 Active 4405 4006 Problem Pain, joint, multiple sites M25.50 Active 3567 8005 Problem Anxiety F41.9 Active 53693001 ALLERGIES Allergen (clinical drug ingredient) Drug/Non Drug Allergy do cumented on EMR Reaction Allergy Type Onset Date Status Dulaglutide nausea Drug Allergy Active metformin Metformin HCl([facility] Code:[address]-67) diarrhea Drug Gabriel rgy Active ENCOUNTERS from 1969 to 2020-10-11 Encounter Location Date Provider Diagnosis [facility] [address] [place] [address] 15 Sep, 2 021 Fainamelanie Norman Type 2 diabetes mellitus with hyperglycemia, without long-term current use of insulin E11.65 ; Mixed hyperlipidemia E78.2 ; Gastroesophageal reflux disease without esophagitis K21.9 ; Vitamin D deficiency E55.9 and Anxiety F41.9 IMMUNIZATIONS Vaccine Route Administration Date Status COVID-19(given elsewhere) Unspecified Unknown Oct 07 21 Administered Influenza (18 yrs & older) Flublok [...] Education Language: Question Answer Notes Languages spoken: Albanian Mormon: Question Answer Notes Mormon 08 Confucianism Sexual Hx: Question Answer Notes Had sex [...] FOR REFERRAL No Information VITAL SIGNS Weight 158 lbs Sep, Height 61.25 in Sep, BMI 29.61 kg/m2 Sep, Heart Rate 88 /min Sep, Respiratory Rate 20 /min Sep, Temperature 97 degrees Fahrenheit Sep, Oximetry 96 Sep, Blood pressure systolic 124 mm Hg Sep, Blood pressure diastolic 60 mm Hg Sep, MEDICATIONS Medication SIG (Take, Route, Frequency, Duration) [...] _ Dx:E11.9 for 30 day(s) Active Pen [place] 3/16" 31G X 5 MM dx e11.65 subcutaneously weekly for 90 day(s) Sep, Active Escitalopram Oxalate 20 MG 1 tab Orally Once a day Active Ergocalciferol 1.25 MG (41593 UT) 1 capsule Orally weekly with meal Active Ozempic (0.25 or 0.5 MG/DOSE) 2 MG/1.5ML 0.25mg Subcut aneous once weekly x 4 weeks, then 0.5mg weekly for 90 day(s) Sep, Active PROCEDURES No Information RESULTS No Results REASON FOR VISIT f/up after labs with hyperglycemia MEDICAL (GENERAL) HISTORY Type Description Date Medical [...] Notes Treatment Notes Treatm ent Clinical Notes Sep, Type 2 diabetes mellitus wit h hyperglycemia, without long-term current use of insulin (ICD-10 - E11.65) advised on administration and side effects of medication prescribed and pt verbalized understanding. refer to CC M Sep, Mixed hyperlipidemia (ICD-10 - E78.2) Sep, Gastroesophageal reflux dise ase without esophagitis (ICD-10 - K21.9) Sep, Vitamin D deficiency (ICD-10 - E55.9) Sep, Anxiety (ICD-10 - F41.9) PLAN OF TREATMENT [...] Orally Once a day Ergocalciferol 1.25 MG (46314 UT) 1 capsule Orally weekly with m eal Ozempic (0.25 or 0.5 MG/DOSE) 2 MG/1.5ML 0.25mg Subcut aneous once weekly x 4 weeks, then 0.5mg weekly for 90 day(s) Sep, Pen [place] 3/16" 31G X 5 MM dx e11.65 subcutaneously weekly for 90 day(s) Sep, Treatment Notes Assessment Notes Clinical Notes Type 2 diabetes mellitus with hyperglyce natasha, without long-term current use of insulin advised on administration and side effec ts of medication prescribed and pt verbalized understanding. refer to CC M Future Test Test Name Order Date Comprehensive Metabolic Profile (CMP) [id number] HEMOGLOBIN A1c [id number] Next Appt Details 4 - 6 Weeks (30min) Reason:f/u after lab s with glucometer Provider Name:Faina Norman, 2020-11-08 04:0 0:00 PM, [facility] [place], [address], Follow Up:4 - 6 Weeks (30min)f/u after labs with glucometer Insurance Providers Payer Name Payer Address Payer Phone Insured Name Patient Relati onship to Insured Coverage Start Date Coverage End Date [facility] [phone] [facility] [employer] [place] [id number] CRISELDA KLEIN self
--- OUTSIDE RECORDS SUMMARY | 2020-11-18 06:51 | CCD ---
Author Author [facility] Organization [facility] Address Unknown Phone Unavailable Care Team Providers Care Water Valve Mechanic Name Role Phone Center Lab, Medical [facility] Unavailable Unavailabl e Dille, E Roselyn DDS Unavailable Unavailable Dille, E Roselyn DDS Unavailable Unavailable Dille, E Roselyn DDS Unavailable Unavailable Dille, E Roselyn DDS Unavailable Unavailable Re-disclosure Warning The records that you are about to access may contain information from federally-assisted alcohol or drug abuse programs. If such information is present, then the following federally mandated warning applies: This information has been disclosed to you from records protected by federal confidentiality rules (42 CFR part 2). The federal rules prohibit you from making any further disclosure of this information unless further disclosure is expressly permitted by the written consent of the person to whom it pertains or as otherwise permitted by 42 CFR part 2. A general authorization for the release of medical or other information is NOT sufficient for this purpose. The Federal rules restrict any use of the information to criminally investigate or prosecute any alcohol or drug abuse patient.The records that you are about to access may contain highly sensitive health information, the redisclosure of which is protected by Article 27-F of the [facility] Public Health law. If you continue you may have access to information: Regarding HIV / AIDS; Provided by facilities licensed or operated by the [facility] Office of Mental Health; or Provided by the [facility] Office for People With Developmental Disabilities. If such information is present, then the following [facility] mandated warning applies: This information has been disclosed to you from confidential records which are protected by state law. State law prohibits you from making any further disclosure of this information without the specific written consent of the person to whom it pertains, or as otherwise permitted by law. Any unauthorized further disclosure in violation of state law may result in a fine or mcfp sentence or both. A general authorization for the release of medical or other information is NOT sufficient authorization for further disc losure. Allergies and Adverse Reactions Type Description Substance Reaction Status Data Source(s ) metformin Metformin HCl Metformin diarrhea Active eCW1 ([facility]) Family History Family Member Name Family Member Gender Family Member Status Date o f Status Description Data Source(s) Unknown Male Problem MEDENT ([facility] Unknown Unknown Problem MEDENT ([facility], [facility]) mother Encounters Encounter Providers Location Date Indications Data Source(s ) Outpatient [address] [facility] [place] [place] [address] 11/08/2020 12:00:00 AM EST eCW1 ([facility]) Outpatient [address] [facility] [place] [address] 10/07/2020 12:00:00 AM EST eCW1 ([facility]) Unknown [address] [facility] [place] [address] 10/06/2020 12:00:00 AM EST eCW1 ([facility]) Outpatient [address] [facility] [place] [address] 07/15/2020 12:00:00 AM EDT eCW1 ([facility]) Unknown [address] [facility] [place] [address] 07/15/2020 12:00:00 AM EDT [facility]CW1 [facility]) Outpatient Attender: Roselyn Tomas LENTZ 05/26/2020 12:02:02 A M EDT [facility] Dermatology [address] [place] [address] 05/03/2020 12:00:00 AM EDT eCW1 ([facility]) Outpatient Attender: [facility] 04/18/2020 12:13 :00 PM EDT [facility] [place] [address] [facility] [address] 03/24/2020 12:00:00 AM EDT eCW1 ([facility]) Outpatient Attender: Roselyn ALBERTS 02/24/2020 01:59:03 P M EDT [facility] Outpatient Attender: Roselyn LENTZ 02/23/2020 01:37:00 P M EDT [facility] Outpatient Attender: Roselyn LENTZ 02/11/2020 10:46:00 A M EDT [facility] [place] [address] [facility] [address] 12/30/2019 12:00:00 AM EDT eCW1 ([facility]) [facility] [place] [address] [facility] [address] 12/14/2019 12:00:00 AM EDT eCW1 ([facility]) Outpatient Attender: Roselyn Tomas LENTZ 12/07/2019 10:45:01 A M EDT [facility] [place] [address] [facility] [address] 12/07/2019 12:00:00 AM EDT eCW1 ([facility]) Outpatient 10/21/2019 10:38:00 AM EST [facility] Dermatology Center [address] [place] [address] 10/02/2019 12:00:00 AM EST eCW1 ([facility]) Immunizations Vaccine Date Status Description Data Source(s) influenza, recombinant, quadrIvalent,injectable, prese rvative free 10/07/2020 03:07:00 PM EST completed eCW1 [facility]) COVID-19 dose #1 given elsewhere Unspecified 10/07/2020 03:0 7:00 PM EST completed eCW1 ([facility]) influenza, recombinant, quadrIvalent,injectable, prese rvative free 10/07/2020 03:07:00 PM EST completed eCW1 ([facility]) COVID-19(given elsewhere) Unspecified 10/07/2020 03:07:00 PM EST co mpleted eCW1 ([facility]) influenza, recombinant, quadrIvalent,injectable, prese rvative free 10/07/2020 03:07:00 PM EST completed eCW1 ([facility]) COVID-19(given elsewhere) Unspecified 10/07/2020 03:07:00 PM EST co mpleted eCW1 ([facility]) Medications Medication Brand Name Start Date Product Form Dose Route Admi nistrative Instructions Pharmacy Instructions Status Indications Reaction Description Data Source(s) 100 unit/mL (3 mL) 11/09/2020 12:00:00 AM EST insulin pen 15 INJECT 10 UNITS UNDER THE SKIN DAILY INJECT 10 UNITS UNDER THE SKIN DAILY SOLD: 11/10/2020 [facility] 3 ML insulin detemir 100 UNT/ML Pen Inje ctor [Levemir] Levemir FlexTouch 100 UNIT/ML Levemir FlexTouch 100 UNIT/ML 11/08/2020 12:00:00 AM EST active Levemir FlexTouch 100 UNIT/ML eC W1 ([facility]) pantoprazole 40 MG Delayed Release Oral Tablet PANTOPRAZOLE SODIUM 11/01/2020 12:00:00 AM EST tablet,delayed release (DR/EC) 60 T [place] ONE TABLET BY MOUTH EVERY DAY TAKE ONE TABLET BY MOUTH EVERY DAY SOLD: 11/02/2020 [facility] 0.25 mg or 0.5 mg(2 mg/1.5 mL) 10/08/2020 12:00:00 AM EST pe n injector 3 INJECT 0.25MG UNDER THE SKIN ONCE WEEKLY FOR 4 WEEKS, THEN INCREASE TO 0.5MG WEEKLY INJECT 0.25MG UNDER THE SKIN ONCE WEEKLY FOR 4 WEEKS, THEN INCREASE TO 0.5MG WEEKLY SOLD: 10/09/2020 [facility] 31 gauge x 3/16" 10/08/2020 12:00:00 AM EST needle 12 USE 1 WEEKLY USE 1 WEEKLY SOLD: 10/09/2020 [facility] Ozempic (0.25 or 0.5 MG/DOSE) 2 MG/1.5ML Ozempic (0.25 or 0.5 MG/DOSE) 2 MG/1.5ML 10/07/2020 12:00:00 AM EST active Ozempic (0.25 or 0.5 MG/DOSE) 2 MG/1.5ML eCW1 ([facility]) Ozempic (0.25 or 0.5 MG/DOSE) 2 MG/1.5ML Ozempic (0.25 or 0.5 MG/DOSE) 2 MG/1.5ML 10/07/2020 12:00:00 AM EST active Ozempic (0.25 or 0.5 MG/DOSE) 2 MG/1.5ML eCW1 ([facility]) Pen [place] 3/16" 31G X 5 MM Pen [place] 3/16" 31G X 5 MM 12:00:00 AM EST active Pen [place] 3/16" 31G X 5 MM eCW1 ([facility]) Pen [place] 3/16" 31G X 5 MM Pen [place] 3/16" 31G X 5 MM 12:00:00 AM EST active Pen [place] 3/16" 31G X 5 MM eCW1 ([facility]) glimepiride 2 MG Oral Tablet GLIMEPIRIDE 07/16/2020 12:00:00 AM EDT t ablet 180 TAKE ONE TABLET BY MOUTH TWICE A DAY WITH MEALS TAKE O NE TABLET BY MOUTH TWICE A DAY WITH MEALS SOLD: 07/17/2020 [facility] atorvastatin 10 MG Oral Tablet ATORVASTATIN CALCIUM 07/16/2020 1 2:00:00 AM EDT tablet 90 TAKE ONE TABLET BY MOUTH EVERY D AY TAKE ONE TABLET BY MOUTH EVERY DAY SOLD: 07/17/2020 [facility] atorvastatin 10 MG Oral Tablet ATORVASTATIN CALCIUM 07/16/2020 1 2:00:00 AM EDT tablet 90 TAKE ONE TABLET BY MOUTH EVERY D AY TAKE ONE TABLET BY MOUTH EVERY DAY SOLD: 11/02/2020 [facility] 25 mcg (1,000 unit) 07/16/2020 12:00:00 AM EDT tablet 60 TAKE TWO TABLETS BY MOUTH EVERY DAY WITH MEALS TAKE TWO TABLETS BY MOUTH EVERY DAY WITH MEALS SOLD: 07/17/2020 [facility] 40 mg 07/16/2020 12:00:00 AM EDT capsule,delayed release (DR/EC) 90 TAKE ONE CAPSULE BY MOUTH EVERY DAY TAKE ONE CAPSULE BY MOUTH EVERY DAY SOLD: 07/17/2020 [facility] Escitalopram 20 MG Oral Tablet ESCITALOPRAM OXALATE 07/16/2020 1 2:00:00 AM EDT tablet 90 TAKE ONE TABLET BY MOUTH EVERY D AY TAKE ONE TABLET BY MOUTH EVERY DAY SOLD: 07/17/2020 [facility] 14 mg 07/16/2020 12:00:00 AM EDT tablet 90 TAKE 1 TABLET BY MOUTH ONCE DAILY AT LEAST 30 MINUTES BEFORE FIRST FOOD, BEVERAGE OR OTHER ORAL MEDICINE OF THE DAY TAKE 1 TABLET BY MOUTH ONCE DAILY AT [address] 30 MINUTES BEFORE FIRST FOOD, BEVERAGE OR OTHER ORAL MEDICINE OF THE DAY SOLD: 07/17/2020 [facility] 14 mg 07/16/2020 12:00:00 AM EDT tablet 90 TAKE 1 TABLET BY MOUTH ONCE DAILY AT LEAST 30 MINUTES BEFORE FIRST FOOD, BEVERAGE OR OTHER ORAL MEDICINE OF THE DAY TAKE 1 TABLET BY MOUTH ONCE DAILY AT [address] 30 MINUTES BEFORE FIRST FOOD, BEVERAGE OR OTHER ORAL MEDICINE OF THE DAY SOLD: 11/02/2020 [facility] glimepiride 2 MG Oral Tablet GLIMEPIRIDE 07/16/2020 12:00:00 AM EDT t ablet 180 TAKE ONE TABLET BY MOUTH TWICE A DAY WITH MEALS TAKE O NE TABLET BY MOUTH TWICE A DAY WITH MEALS SOLD: 11/02/2020 [facility] Rybelsus 14 MG Rybelsus 14 MG 07/15/2020 12:00:00 AM EDT active Rybelsus 14 MG eCW1 ([facility]) 1,250 mcg (50,000 unit) 07/15/2020 12:00:00 AM EDT capsule 12 TAKE ONE CAPSULE BY MOUTH ONCE WEEKLY TAKE ONE CAPSULE BY MOUTH ONCE WEEKLY SOLD: 10/09/2020 [facility] 1,250 mcg (50,000 unit) 07/15/2020 12:00:00 AM EDT capsule 12 TAKE ONE CAPSULE BY MOUTH ONCE WEEKLY TAKE ONE CAPSULE BY MOUTH ONCE WEEKLY SOLD: 07/17/2020 [facility] Rybelsus 14 MG Rybelsus 14 MG 07/15/2020 12:00:00 AM EDT active Rybelsus 14 MG eCW1 ([facility]) 20 mg 06/06/2020 12:00:00 AM EDT tablet 7 TAKE ONE TABLET BY MOUTH EVERY DAY FOR 7 DAYS TAKE ONE TABLET BY MOUTH EVERY DAY FOR 7 DAYS SOLD: 06/07/2020 [facility] 1 gram 06/06/2020 12:00:00 AM EDT tablet 21 TAKE ONE TABLET BY MOUTH THREE TIMES A DAY FOR 7 DAYS TAKE ONE TABLET BY MOUTH THREE TIMES A DAY FOR 7 DAYS SOLD: 06/07/2020 [facility] Cephalexin 500 MG Oral Capsule CEPHALEXIN 05/31/2020 12:00:00 AM EDT capsule 15 TAKE ONE CAPSULE BY MOUTH THREE TIMES A DAY FOR 5 DAYS TAKE ONE CAPSULE BY MOUTH THREE TIMES A DAY FOR 5 DAYS SOLD: 05/31/2020 [facility] 7 mg 04/22/2020 12:00:00 AM EDT tablet 30 TAKE ONE TABLET BY MOUTH ONCE DAILY TAKE ONE TABLET BY MOUTH ONCE DAILY SOLD: 04/27/2020 [facility] 3 mg 03/25/2020 12:00:00 AM EDT tablet 30 TAKE ONE TABLET BY MOUTH AT LEAST 30 MINUTES BEFORE FIRST FOOD, BEVERAGE OR OTHER ORAL MEDICINE OF THE DAY ONCE A DAY TAKE ONE TABLET BY MOUTH AT LEAST 30 MIN UTES BEFORE FIRST FOOD, BEVERAGE OR OTHER ORAL MEDICINE OF THE DAY ONCE A DAY SOLD: 03/27/2020 [facility] 500 mg 03/01/2020 12:00:00 AM EDT tablet 14 TAKE ONE TABLET BY MOUTH EVERY 12 HOURS FOR 7 DAYS TAKE ONE TABLET BY MOUTH EVERY 12 HOURS FOR 7 DAYS SREEKANTH [facility] 0.75 mg/0.5 mL 12/31/2019 12:00:00 AM EDT pen injector 2 INJECT 1 INJECTION UNDER THE SKIN WEEKLY WITH A MEAL INJECT 1 INJECTION UNDER THE SKIN WEEKLY WITH A MEAL SOLD: 12/31/2019 [facility] Dulaglutide 0.75 MG/0.5ML UNK 12/30/2019 12:00:00 AM EDT active 1 injection eCW1 ([facility]) 10 mg 12/30/2019 12:00:00 AM EDT tablet 90 TAKE ONE TABLET BY MOUTH EVERY DAY TAKE ONE TABLET BY MOUTH EVERY DAY SOLD: 12/31/2019 [facility] Escitalopram 20 MG Oral Tablet ESCITALOPRAM OXALATE 12/30/2019 1 2:00:00 AM EDT tablet 90 TAKE ONE TABLET BY MOUTH EVERY D AY TAKE ONE TABLET BY MOUTH EVERY DAY SOLD: 03/29/2020 [facility] 40 mg 12/30/2019 12:00:00 AM EDT capsule,delayed release (DR/EC) 90 TAKE ONE CAPSULE BY MOUTH EVERY DAY TAKE ONE CAPSULE BY MOUTH EVERY DAY SOLD: 12/31/2019 [facility] 40 mg 12/30/2019 12:00:00 AM EDT capsule,delayed release (DR/EC) 90 TAKE ONE CAPSULE BY MOUTH EVERY DAY TAKE ONE CAPSULE BY MOUTH EVERY DAY SOLD: 03/29/2020 [facility] glimepiride 2 MG Oral Tablet GLIMEPIRIDE 12/30/2019 12:00:00 AM EDT t ablet 180 TAKE ONE TABLET BY MOUTH TWICE A DAY WITH MEALS TAKE O NE TABLET BY MOUTH TWICE A DAY WITH MEALS SOLD: 03/29/2020 [facility] Ergocalciferol 47293 UNT Oral Capsule Ergocalciferol 1 .25 MG (60251 UT) Ergocalciferol 1.25 MG (30970 UT) 12/30/2019 12:00:00 AM EDT active 1 capsule eCW1 ([facility]) 10 mg 12/30/2019 12:00:00 AM EDT tablet 90 TAKE ONE TABLET BY MOUTH EVERY DAY TAKE ONE TABLET BY MOUTH EVERY DAY SOLD: 03/29/2020 [facility] 1,250 mcg (50,000 unit) 12/30/2019 12:00:00 AM EDT capsule 12 TAKE 1 CAPSULE BY MOUTH EVERY WEEK WITH A MEAL TAKE 1 CAPSULE BY MOUTH EVERY WEEK WITH A MEAL SOLD: 03/29/2020 [facility] glimepiride 2 MG Oral Tablet GLIMEPIRIDE 12/30/2019 12:00:00 AM EDT t ablet 180 TAKE ONE TABLET BY MOUTH TWICE A DAY WITH MEALS TAKE O NE TABLET BY MOUTH TWICE A DAY WITH MEALS SOLD: 12/31/2019 [facility] 1,250 mcg (50,000 unit) 12/30/2019 12:00:00 AM EDT capsule 12 TAKE 1 CAPSULE BY MOUTH EVERY WEEK WITH A MEAL TAKE 1 CAPSULE BY MOUTH EVERY WEEK WITH A MEAL SOLD: 12/31/2019 [facility] Escitalopram 20 MG Oral Tablet ESCITALOPRAM OXALATE 12/30/2019 1 2:00:00 AM EDT tablet 90 TAKE ONE TABLET BY MOUTH EVERY D AY TAKE ONE TABLET BY MOUTH EVERY DAY SOLD: 12/31/2019 [facility] Insurance Providers Payer name Policy type / Coverage type Policy ID Covered libertarian ID Covered libertarian's relationship to wheat Policy Wheat Plan Information [place]/307 [id number] SP [id number] [place] [place]/307 [id number] SP [id number] [employer] P [id number] S VYS [id number] EXCELL[employer] BCBS B [id number] S VYS [id number] [place] PPO 302/307 [id number] SP [id number] Self Pay P [id number] S [id number] ANSI-Commercial [id number] BS [employer] [place] Commercial [id number] Self [id number] BC[place] [id number] SP [id number] BS [employer] [place] Commercial [id number] Self [id number] ANSI-Commercial [id number] ANSI-Commercial [id number] ANSI-Commercial [id number] [employer] [facility] [place] P [id number] BCBS/Blue Card Commercial [id number] Self V [id number] Medicaid Dental S [id number] S [id number] [place] PPO 302/307 [id number] SP [id number] D [facility] O [id number] S [id number] D [facility] O [id number] S [id number] Medicaid Dental P [id number] S [id number] Medicaid S UNAVAILABLE S UNAVAILA BLE UNHC COMMUNITY PLAN MCDO [id number] SP [id number] BLUE CROSS MONTO[place] PLAN [id number] SP [id number] HMO BLUE [id number] SP [id number] Surgeries/Procedures Procedure Description Date Indications Data Source(s) TeleMedicine Est. Pt. Level 4 12/30/2019 12:00:00 AM E DT eCW1 ([facility]) Results ID Date Data Source [id number] 11/13/2020 11:00:00 AM EST [facility] Name Value Range Interpretation Code Description Data Corinne rce(s) Supporting Document(s) SARS coronavirus 2 RNA Not Detected [facility] [place] This lab was ordered by [facility] and reported by [facility]. ID Date Data Source 11/11/2020 12:00:00 AM EST [facility] Name Value Range Interpretation Code Description Data Corinne rce(s) Supporting Document(s) SARS coronavirus 2 Ag Negative [facility] This lab was ordered by [facility] and reported by [facility]. ID Date Data Source [id number] 11/08/2020 05:48:00 AM EST [facility] Name Value Range Interpretation Code Description Data Corinne rce(s) Supporting Document(s) SARS coronavirus 2 RNA Not Detected [facility] [place] This lab was ordered by [facility] and reported by [facility]. ID Date Data Source [id number] 11/01/2020 09:08:00 AM EST [facility] Name Value Range Interpretation Code Description Data Corinne rce(s) Supporting Document(s) SARS coronavirus 2 RNA Not Detected [facility] [place] This lab was ordered by [facility] and reported by [facility]. ID Date Data Source [id number] 10/25/2020 06:00:00 AM EST [facility] Name Value Range Interpretation Code Description Data Corinne rce(s) Supporting Document(s) SARS coronavirus 2 RNA Not Detected [facility] [place] This lab was ordered by [facility] and reported by [facility]. ID Date Data Source [id number] 10/18/2020 09:00:00 AM EST [facility] Name Value Range Interpretation Code Description Data Corinne rce(s) Supporting Document(s) SARS coronavirus 2 RNA Not Detected [facility] [place] This lab was ordered by [facility] and reported by [facility]. ID Date Data Source [id number] 10/11/2020 09:00:00 AM EST [facility] Name Value Range Interpretation Code Description Data Corinne rce(s) Supporting Document(s) SARS coronavirus 2 RNA Not Detected [facility] [place] This lab was ordered by [facility] and reported by [facility]. ID Date Data Source [id number] 10/04/2020 05:30:00 AM EST [facility] Name Value Range Interpretation Code Description Data Corinne rce(s) Supporting Document(s) SARS coronavirus 2 RNA Not Detected [facility] [place] This lab was ordered by [facility] and reported by [facility]. ID Date Data Source [id number] 09/27/2020 06:00:00 AM EST [facility] Name Value Range Interpretation Code Description Data Corinne rce(s) Supporting Document(s) SARS coronavirus 2 RNA Not Detected [facility] [place] This lab was ordered by [facility] and reported by [facility]. ID Date Data Source [id number] 09/20/2020 07:07:00 AM EST [facility] Name Value Range Interpretation Code Description Data Corinne rce(s) Supporting Document(s) SARS coronavirus 2 RNA [facility] This lab was ordered by [facility] and reported by [facility]. ID Date Data Source [id number] 09/13/2020 09:00:00 AM EST [facility] Name Value Range Interpretation Code Description Data Corinne rce(s) Supporting Document(s) SARS coronavirus 2 RNA [facility] This lab was ordered by [facility] and reported by [facility]. ID Date Data Source [id number] 09/06/2020 06:00:00 AM EST [facility] Name Value Range Interpretation Code Description Data Corinne rce(s) Supporting Document(s) SARS coronavirus 2 RNA [facility] This lab was ordered by [facility] and reported by [facility]. ID Date Data Source [id number] 08/30/2020 05:36:00 AM EST [facility] Name Value Range Interpretation Code Description Data Corinne rce(s) Supporting Document(s) SARS coronavirus 2 RNA [facility] This lab was ordered by [facility] and reported by [facility]. ID Date Data Source [id number] 08/23/2020 05:32:00 AM EST [facility] Name Value Range Interpretation Code Description Data Corinne rce(s) Supporting Document(s) SARS coronavirus 2 RNA [facility] This lab was ordered by [facility] and reported by [facility]. ID Date Data Source [id number] 08/16/2020 07:30:00 AM EST [facility] Name Value Range Interpretation Code Description Data Corinne rce(s) Supporting Document(s) SARS coronavirus 2 RNA [facility] This lab was ordered by [facility] and reported by [facility]. ID Date Data Source [id number] 08/09/2020 08:00:00 AM EST [facility] Name Value Range Interpretation Code Description Data Corinne rce(s) Supporting Document(s) SARS coronavirus 2 RNA [facility] This lab was ordered by [facility] and reported by [facility]. ID Date Data Source [id number] 08/02/2020 07:00:00 AM EST [facility] Name Value Range Interpretation Code Description Data Corinne rce(s) Supporting Document(s) SARS coronavirus 2 RNA [facility] This lab was ordered by [facility] and reported by [facility]. ID Date Data Source [id number] 07/26/2020 05:00:00 AM EST [facility] Name Value Range Interpretation Code Description Data Corinne rce(s) Supporting Document(s) SARS coronavirus 2 RNA [facility] This lab was ordered by [facility] and reported by [facility]. ID Date Data Source [id number] 07/19/2020 07:30:00 AM EDT [facility] Name Value Range Interpretation Code Description Data Corinne rce(s) Supporting Document(s) SARS coronavirus 2 RNA [facility] This lab was ordered by [facility] and reported by [facility]. ID Date Data Source [id number] 07/12/2020 05:32:00 AM EDT [facility] Name Value Range Interpretation Code Description Data Corinne rce(s) Supporting Document(s) SARS coronavirus 2 RNA [facility] This lab was ordered by [facility] and reported by [facility]. ID Date Data Source [id number] 07/05/2020 08:00:00 AM EDT [facility] Name Value Range Interpretation Code Description Data Corinne rce(s) Supporting Document(s) SARS coronavirus 2 RNA [facility] This lab was ordered by [facility] and reported by [facility]. ID Date Data Source [id number] 06/28/2020 10:00:00 AM EDT [facility] Name Value Range Interpretation Code Description Data Corinne rce(s) Supporting Document(s) SARS coronavirus 2 RNA [facility] This lab was ordered by [facility] and reported by [facility]. ID Date Data Source [id number] 06/21/2020 06:00:00 AM EDT [facility] Name Value Range Interpretation Code Description Data Corinne rce(s) Supporting Document(s) SARS coronavirus 2 RNA [facility] This lab was ordered by [facility] and reported by [facility]. ID Date Data Source [id number] 06/14/2020 05:32:00 AM EDT [facility] Name Value Range Interpretation Code Description Data Corinne rce(s) Supporting Document(s) SARS coronavirus 2 RNA [facility] This lab was ordered by [facility] and reported by [facility]. ID Date Data Source [id number] 06/07/2020 05:30:00 AM EDT [facility] Name Value Range Interpretation Code Description Data Corinne rce(s) Supporting Document(s) SARS coronavirus 2 RNA [facility] This lab was ordered by [facility] and reported by [facility]. ID Date Data Source [id number] 05/31/2020 07:50:00 AM EDT [facility] Name Value Range Interpretation Code Description Data Corinne rce(s) Supporting Document(s) SARS coronavirus 2 RNA [facility] This lab was ordered by [facility] and reported by [facility]. ID Date Data Source [id number] 05/24/2020 07:26:00 AM EDT [facility] Name Value Range Interpretation Code Description Data Corinne rce(s) Supporting Document(s) SARS coronavirus 2 RNA [facility] This lab was ordered by [facility] and reported by [facility]. ID Date Data Source [id number] 05/17/2020 09:31:00 AM EDT [facility] Name Value Range Interpretation Code Description Data Corinne rce(s) Supporting Document(s) SARS coronavirus 2 RNA [facility] This lab was ordered by [facility] and reported by [facility]. ID Date Data Source [id number] 04/18/2020 10:22:00 PM EDT [facility] Name Value Range Interpretation Code Description Data Corinne rce(s) Supporting Document(s) Urea nitrogen [Mass/volume] in Serum or Plasma 8 mg/dL 9-23 Below low normal [facility] Sodium [Moles/volume] in Serum or Plasma 139 mmol/L 132-146 N [facility] Potassium [Moles/volume] in Serum or Plasma 5.0 mmol/L 3.5-5.5 [facility] Chloride [Moles/volume] in Serum or Plasma 106 mmol/L 99-109 [facility] Carbon dioxide, total [Moles/volume] in Serum or Plasma 28 mmol/L 20 -31 N [facility] Anion gap in Serum or Plasma 10 mmol/L 8-16 [facility] Glucose [Mass/volume] in Serum or Plasma 180 mg/dL 74-106 Above high normal [facility] Creatinine 0.7 mg/dL 0.5-1.1 [facility] Glomerular filtration rate/1.73 sq M.pre dicted [Volume Rate/Area] in Serum or Plasma Greater Than 60 ABOVE 60 [facility] Alanine aminotransferase [Enzymatic acti vity/volume] in Serum or Plasma by With P-5'-P 32 U/L 10-49 N [facility] ital Aspartate aminotransferase [Enzymatic ac tivity/volume] in Serum or Plasma by With P-5'-P 22 U/L 0-33 N [facility] pital Alkaline phosphatase [Enzymatic activity/volume] in Serum or Plasma 101 U/L 45-129 N [facility] Calcium [Mass/volume] in Serum or Plasma 9.6 mg/dL 8.5-10.1 N [facility] Bilirubin.total [Mass/volume] in Serum or Plasma 0.4 mg/dL 0.3-1.2 N [facility] Albumin [Mass/volume] in Serum or Plasma by Bromocresol purple (BCP) dye binding method 4.1 g/dL 3.2-4.8 N [facility] ital Protein [Mass/volume] in Serum or Plasma 6.9 g/dL 5.7-8.2 N [facility] ID Date Data Source [id number] 04/18/2020 10:22:00 PM EDT [facility] Name Value Range Interpretation Code Description Data Corinne rce(s) Supporting Document(s) Triglycerides 115 mg/dL 0-150 N [facility] Cholesterol 179 mg/dL 120-200 N [facility] HDL Cholesterol 43 mg/dL [facility] HDL Less than 40 mg/dL: Major risk for CHDHDL Greater than 59 mg/dL: Low risk for CHD LDL Cholesterol, Calc 113 mg/dL 0-100 Above high normal [facility] ID Date Data Source [id number] 04/18/2020 10:20:00 PM EDT [facility] Name Value Range Interpretation Code Description Data Corinne rce(s) Supporting Document(s) Urine Random Creatinine 44.0 mg/dL [facility] THERE IS NO ESTABLISHED RANGE FOR RANDOM URINE CREATININE Urine Microalbumin Less Than 5.0 0.0-29.9 N [facility] ID Date Data Source [id number] 04/12/2020 05:30:00 AM EDT [facility] Name Value Range Interpretation Code Description Data Corinne rce(s) Supporting Document(s) SARS coronavirus 2 RNA [facility] This lab was ordered by [facility] and reported by [facility]. ID Date Data Source [id number] 04/05/2020 06:00:00 AM EDT [facility] Name Value Range Interpretation Code Description Data Corinne rce(s) Supporting Document(s) SARS coronavirus 2 RNA [facility] This lab was ordered by [facility] and reported by [facility]. ID Date Data Source [id number] 03/29/2020 01:16:00 PM EDT [facility] Name Value Range Interpretation Code Description Data Corinne rce(s) Supporting Document(s) SARS coronavirus 2 RNA [facility] This lab was ordered by [facility] and reported by [facility]. ID Date Data Source [id number] 03/22/2020 05:30:00 AM EDT [facility] Name Value Range Interpretation Code Description Data Corinne rce(s) Supporting Document(s) SARS CORONAVIRUS 2 RNA [facility] This lab was ordered by [facility] and reported by [facility]. ID Date Data Source [id number] 03/15/2020 05:30:00 AM EDT [facility] Name Value Range Interpretation Code Description Data Corinne rce(s) Supporting Document(s) SARS CORONAVIRUS 2 RNA [facility] This lab was ordered by [facility] and reported by [facility]. ID Date Data Source [id number] 03/08/2020 11:17:00 AM EDT [facility] Name Value Range Interpretation Code Description Data Corinne rce(s) Supporting Document(s) SARS CORONAVIRUS 2 RNA [facility] This lab was ordered by [facility] and reported by [facility]. ID Date Data Source [id number] 03/01/2020 06:00:00 AM EDT [facility] Name Value Range Interpretation Code Description Data Corinne rce(s) Supporting Document(s) SARS CORONAVIRUS 2 RNA [facility] This lab was ordered by [facility] and reported by [facility]. ID Date Data Source [id number] 02/26/2020 05:30:00 AM EDT [facility] Name Value Range Interpretation Code Description Data Corinne rce(s) Supporting Document(s) SARS CORONAVIRUS 2 RNA [facility] This lab was ordered by [facility] and reported by [facility]. ID Date Data Source [id number] 02/23/2020 05:30:00 AM EDT [facility] Name Value Range Interpretation Code Description Data Corinne rce(s) Supporting Document(s) SARS CORONAVIRUS 2 RNA [facility] This lab was ordered by [facility] and reported by [facility]. ID Date Data Source [id number] 02/19/2020 12:12:00 PM EDT [facility] Name Value Range Interpretation Code Description Data Corinne rce(s) Supporting Document(s) SARS CORONAVIRUS 2 RNA [facility] This lab was ordered by [facility] and reported by [facility]. ID Date Data Source [id number] 02/17/2020 05:30:00 AM EDT [facility] Name Value Range Interpretation Code Description Data Corinne rce(s) Supporting Document(s) SARS CORONAVIRUS 2 RNA [facility] This lab was ordered by [facility] and reported by [facility]. ID Date Data Source [id number] 02/11/2020 06:00:00 AM EDT [facility] Name Value Range Interpretation Code Description Data Corinne rce(s) Supporting Document(s) SARS CORONAVIRUS 2 RNA [facility] This lab was ordered by [facility] and reported by [facility]. ID Date Data Source [id number] 02/09/2020 05:30:00 AM EDT [facility] Name Value Range Interpretation Code Description Data Corinne rce(s) Supporting Document(s) SARS CORONAVIRUS 2 RNA [facility] This lab was ordered by [facility] and reported by [facility]. Procedure Social History Code Duration Value Status Description Data Source(s ) Smoking 11/08/2020 12:00:00 AM EST Former Smoker completed Former Smoker eCW1 ([facility]) Smoking 10/07/2020 12:00:00 AM EST Former Smoker completed Former Smoker eCW1 ([facility]) Smoking 10/07/2020 12:00:00 AM EST Former Smoker completed Former Smoker eCW1 ([facility]) Smoking 07/15/2020 12:00:00 AM EDT Former Smoker completed Former Smoker eCW1 ([facility]) Smoking 07/15/2020 12:00:00 AM EDT Former Smoker completed Former Smoker eCW1 ([facility]) Vital Signs ID Date Data Source UNK Name Value Range Interpretation Code Description Data Source(s) Diastolic blood pressure 70 mm[Hg] 70 mm[Hg] eCW1 ([facility]) Systolic blood pressure 110 mm[Hg] 110 mm[Hg] e CW1 ([facility]) Body temperature 98 [degF] 98 [degF] eCW1 ([facility]) Respiratory rate 20 /min 20 /min eCW1 ([facility]) Heart rate 79 /min 79 /min eCW1 ([facility]) Body mass index (BMI) [Ratio] 29.42 kg/m2 29.42 kg/m2 eCW1 ([facility]) Body height 61.25 [in_i] 61.25 [in_i] eCW1 ([facility]) Body weight 157 [lb_av] 157 [lb_av] eCW1 ([facility]) Diastolic blood pressure 60 mm[Hg] 60 mm[Hg] eCW1 ([facility]) Systolic blood pressure 124 mm[Hg] 124 mm[Hg] e CW1 ([facility]) Body temperature 97 [degF] 97 [degF] eCW1 ([facility]) Respiratory rate 20 /min 20 /min eCW1 ([facility]) Heart rate 88 /min 88 /min eCW1 ([facility]) Body mass index (BMI) [Ratio] 29.61 kg/m2 29.61 kg/m2 eCW1 ([facility]) Body height 61.25 [in_i] 61.25 [in_i] eCW1 ([facility]) Body weight 158 [lb_av] 158 [lb_av] eCW1 ([facility]) Diastolic blood pressure 80 mm[Hg] 80 mm[Hg] eCW1 ([facility]) Systolic blood pressure 126 mm[Hg] 126 mm[Hg] e CW1 ([facility]) Body temperature 97 [degF] 97 [degF] eCW1 ([facility]) Respiratory rate 18 /min 18 /min eCW1 ([facility]) Heart rate 84 /min 84 /min eCW1 ([facility]) Body mass index (BMI) [Ratio] 29.05 kg/m2 29.05 kg/m2 eCW1 ([facility]) Body height 61.25 [in_i] 61.25 [in_i] eCW1 ([facility]) Body weight 155 [lb_av] 155 [lb_av] eCW1 ([facility]) Patient Treatment Plan of Care Planned Activity Planned Date Details Description Data Source (s) 3 ML insulin detemir 100 UNT/ML Pen Injector [Levemir] 11/08/2020 12:00:00 AM EST eCW1 ([facility]) Ozempic (0.25 or 0.5 MG/DOSE) 2 MG/1.5ML 10/07/2020 12:00:00 AM EST eCW1 ([facility]) Pen [place] 3/16" 31G X 5 MM 10/07/2020 12:00:00 AM EST eCW1 ([facility]) Ozempic (0.25 or 0.5 MG/DOSE) 2 MG/1.5ML 10/07/2020 12:00:00 AM EST eCW1 ([facility]) Pen [place] 3/16" 31G X 5 MM 10/07/2020 12:00:00 AM EST eCW1 ([facility]) Rybelsus 14 MG 07/15/2020 12:00:00 AM EDT eCW1 ([facility]) Rybelsus 14 MG 07/15/2020 12:00:00 AM EDT eCW1 ([facility]) Ergocalciferol 11762 UNT Oral Capsule 12/30/2019 12:00:00 AM EDT eCW1 ([facility]) Dulaglutide 0.75 MG/0.5ML 12/30/2019 12:00:00 AM EDT eCW1 ([facility])
[2020-11-18] MEDS ORDERED: NS 1,000 ML IV ONE (07:00)
[2020-11-18] MEDS ORDERED: LIDOCAINE 2% 100MG/5ML SDV (FOR ANES.) As Ordered ONE (07:10)
[2020-11-18] MEDS ORDERED: propofoL 200 MG/20 ML VIAL As Ordered ONE (07:10)
[2020-11-18] MEDS ORDERED: fentaNYL 100 MCG/2 ML INJECTION (J3010) As Ordered ONE (07:13)
--- NOTE | 2020-11-18 07:50 | ROOR ---
Patient Name: Benson Klein Procedure Date: 11/18/2020 7:28 AM Date of : 1970 Age: 50 Room: [facility] Gender: Female Note Status: Finalized Procedure: Upper GI endoscopy Indications: Heartburn, Follow-up of Lr's esophagus Providers: Inocencio Morris MD Referring MD: Faina Norman NP Requesting Provider: Medicines: Monitored Anesthesia Care Complications: No immediate complications. Procedure: Pre-Anesthesia Assessment: - Prior to the procedure, a History and Physical was performed, and patient medications and allergies were reviewed. The patient is competent. The risks and benefits of the procedure and the sedation options and risks were discussed with the patient. All questions were answered and informed consent was obtained. Patient identification and proposed procedure were verified by the physician, the nurse and the anesthesiologist in the procedure room. Mental Status Examination: normal. Airway Examination: normal oropharyngeal airway and neck mobility. Respiratory Examination: clear to auscultation. CV Examination: normal. Prophylactic Antibiotics: The patient does not require prophylactic antibiotics. Prior Anticoagulants: The patient has taken no previous anticoagulant or antiplatelet agents. ASA Grade Assessment: II - A patient with mild systemic disease. After reviewing the risks and benefits, the patient was deemed in satisfactory condition to undergo the procedure. The anesthesia plan was to use monitored anesthesia care (MAC). Immediately prior to administration of medications, the patient was re-assessed for adequacy to receive sedatives. The heart rate, respiratory rate, oxygen saturations, blood pressure, adequacy of pulmonary ventilation, and response to care were monitored throughout the procedure. The physical status of the patient was re-assessed after the procedure. The Endoscope was introduced through the mouth, and advanced to the second part of duodenum. The upper GI endoscopy was accomplished without difficulty. The patient tolerated the procedure well. Findings: LA Grade A (one or more mucosal breaks less than 5 mm, not extending between tops of 2 mucosal folds) esophagitis with no bleeding was found in the lower third of the esophagus. Biopsies were obtained from the proximal and distal esophagus with cold forceps for histology of suspected eosinophilic esophagitis. There were esophageal mucosal changes suspicious for short-segment Lr's esophagus present in the lower third of the esophagus. The maximum longitudinal extent of these mucosal changes was 2 cm in length. Mucosa was biopsied with a cold forceps for histology in a targeted manner and in 4 quadrants at intervals of 2 cm in the lower third of the esophagus. One specimen bottle was sent to pathology. Verification of patient identification for the specimen was done by the physician and nurse using the patient's name, date and medical record number. Estimated blood loss was minimal. No gross lesions were noted in the entire examined stomach. The duodenal bulb and second portion of the duodenum were normal. Impression: - LA Grade A reflux esophagitis. Rule out Lr's esophagus. Biopsied. - Esophageal mucosal changes suspicious for short-segment Lr's esophagus. Biopsied. - No gross lesions in the stomach. - Normal duodenal bulb and second portion of the duodenum. Recommendation: - Patient has a contact number available for emergencies. The signs and symptoms of potential delayed complications were discussed with the patient. Return to normal activities tomorrow. Written discharge instructions were provided to the patient. - High fiber diet. - Continue present medications. - Await pathology results. - Use a proton pump inhibitor PO daily. - Repeat upper endoscopy in 3 years for surveillance of Lr's esophagus and for surveillance based on pathology results. - Telephone GI clinic for pathology results in 2 weeks. - Follow an antireflux regimen. - Return to primary care physician. Procedure Code(s): --- Professional --- 04791, Esophagogastroduodenoscopy, flexible, transoral; with biopsy, single or multiple Diagnosis Code(s): --- Professional --- K21.0, Gastro-esophageal reflux disease with esophagitis K22.70, Lr's esophagus without dysplasia R12, Heartburn CPT copyright 2019 [employer]. All rights reserved. The codes documented in this report are preliminary and upon talent acquisition associate review may be revised to meet current compliance requirements. Inocencio Morris MD Inocencio Morris MD 11/18/2020 7:49:56 AM Electronically signed by Inocencio Morris MD Number of Addenda: 0 Note Initiated On: 11/18/2020 7:28 AM Estimated Blood Loss: Estimated blood loss was minimal.
[2020-11-18 08:15] VITALS: BP 127/80
== END 2020-11-18 08:35 | disposition home or self-care (01) ==
LOC: M OPP 06:45
PROVIDERS: ATTEND Internal Medicine Gastroenterology
DX: R12 Heartburn (principal); K22.70 Barrett's esophagus without dysplasia; D13.0 Benign neoplasm of esophagus; K21.00 Gastro-esophageal reflux disease with esophagitis, without bleeding; I10 Essential (primary) hypertension; E78.5 Hyperlipidemia, unspecified; E11.9 Type 2 diabetes mellitus without complications; F41.9 Anxiety disorder, unspecified; Z88.8 Allergy status to other drugs, medicaments and biological substances; Z79.84 Long term (current) use of oral hypoglycemic drugs; Z79.899 Other long term (current) drug therapy; Z80.1 Family history of malignant neoplasm of trachea, bronchus and lung; Z80.3 Family history of malignant neoplasm of breast
CPT/HCPCS: 43239; 88305; J3010

== ENCOUNTER → 2020-12-01 | Outpatient (CLI) | payer BC ==
--- NOTE | 2020-12-01 14:02 | REPMRS ---
Patient History The patient states she had a clinical breast exam in 10/2020 Patient is postmenopausal. Family history of breast cancer at age 50 or over in maternal aunt. Digital Woman Screen Mammo: December 01, 2020 - Exam #: [id number] Bilateral CC and MLO view(s) were taken. Technologist: Mariposa Ho, Technologist Prior study comparison: October 05, 2019, bilateral digital woman screen mammo performed at [facility]. September 01, 2018, bilateral digital woman screen mammo performed at [facility]. March 23, 2009, bilateral digital woman screen mammo, performed at [facility]. FINDINGS: The breast tissue is almost entirely fat. The Volpara volumetric breast density category is: A. There has been no change in the appearance of the mammogram from the prior studies. There is no interval development of dominant mass, architectural distortion, or grouped microcalcification typical of malignancy. 3-D tomosynthesis shows no additional findings. Assessment: BI-RADS/ACR category 1 mammogram. Negative Mammogram. Recommendation Routine screening mammogram of both breasts in 1 year (for women over age 40). This patient's [facility] Lifetime Breast Cancer RIsk is estimated at 11.3 %. This mammogram was interpreted with the aid of an FDA-approved computer-aided dectection system. Electronically Signed By: Torres Bojorquez MD 12/01/20 [id number]
== END ==
LOC: M WHC 13:16
PROVIDERS: ATTEND Nurse Practitioner Family
DX: Z12.31 Encounter for screening mammogram for malignant neoplasm of breast (principal)

== ENCOUNTER → 2020-12-12 | Outpatient (REF) | payer BC ==
[2020-12-12 15:21] LABS: ALT/SGPT 31 U/L (12-78); BILIRUBIN,TOTAL 0.4 MG/DL (0.2-1.0); BLOOD UREA NITROGEN 10 MG/DL (7-18); CARBON DIOXIDE LEVEL 31 MEQ/L (21-32); CHLORIDE LEVEL 104 MEQ/L (98-107); CHOLESTEROL LEVEL 182 MG/DL (<200); CHOLESTEROL RISK RATIO 4.333 (<5); CREATININE FOR GFR 0.66 MG/DL (0.55-1.30); GLOMERULAR FILTRATION RATE > 60.0 (>51); GLUCOSE, FASTING 195 MG/DL (70-100); HDL CHOLESTEROL 42 MG/DL (>40); LDL CHOLESTEROL 114 MG/DL (<100); NON-HDL-C 140 MG/DL; POTASSIUM SERUM 4.7 MEQ/L (3.5-5.1); SODIUM LEVEL 137 MEQ/L (136-145); TOTAL PROTEIN 6.9 GM/DL (6.4-8.2); TRIGLYCERIDES LEVEL 131 MG/DL (<150)
[2020-12-12 15:28] LABS: TOTAL 25(OH) VITAMIN D 67.8 NG/ML (30.0-100.0)
[2020-12-12 17:33] LABS: HEMOGLOBIN A1c 10.1 %
== END ==
LOC: M PLALAB 11:22
PROVIDERS: ATTEND Nurse Practitioner Family
DX: E11.65 Type 2 diabetes mellitus with hyperglycemia (principal); E78.2 Mixed hyperlipidemia; E55.9 Vitamin D deficiency, unspecified

== ENCOUNTER → 2021-03-13 | Outpatient (REF) | payer BC ==
[2021-03-13 18:19] LABS: ALBUMIN 4.3 GM/DL (3.2-5.2); ALT/SGPT 27 U/L (12-78); BILIRUBIN,TOTAL 0.6 MG/DL (0.2-1.0); BLOOD UREA NITROGEN 12 MG/DL (7-18); CALCIUM LEVEL 9.4 MG/DL (8.5-10.1); CARBON DIOXIDE LEVEL 27 MEQ/L (21-32); CHLORIDE LEVEL 105 MEQ/L (98-107); CHOLESTEROL LEVEL 145 MG/DL (<200); CHOLESTEROL RISK RATIO 3.452 (<5); CREATININE FOR GFR 0.79 MG/DL (0.55-1.30); GLOMERULAR FILTRATION RATE > 60.0 (>51); GLUCOSE, FASTING 77 MG/DL (70-100); HDL CHOLESTEROL 42 MG/DL (>40); LDL CHOLESTEROL 87 MG/DL (<100); NON-HDL-C 103 MG/DL; POTASSIUM SERUM 4.4 MEQ/L (3.5-5.1); SODIUM LEVEL 137 MEQ/L (136-145); TOTAL PROTEIN 7.2 GM/DL (6.4-8.2); TRIGLYCERIDES LEVEL 82 MG/DL (<150)
[2021-03-13 19:03] LABS: MALB URINE SIEMENS 10.1 MG/L; MAU/CREAT RATIO 9.1 MCG/MG (0.0-30.0)
[2021-03-13 20:41] LABS: HEMOGLOBIN A1c 6.7 %
== END ==
LOC: M PLALAB 15:12
PROVIDERS: ATTEND Nurse Practitioner Family
DX: E11.65 Type 2 diabetes mellitus with hyperglycemia (principal); E78.2 Mixed hyperlipidemia

== ENCOUNTER → 2021-07-10 | Outpatient (CLI) | payer BC ==
[2021-07-10 14:38] LABS: HEMOGLOBIN A1c 5.9 %
[2021-07-10 14:42] LABS: ALBUMIN 4.4 GM/DL (3.2-5.2); ALT/SGPT 44 U/L (12-78); BILIRUBIN,TOTAL 0.7 MG/DL (0.2-1.0); BLOOD UREA NITROGEN 8 MG/DL (7-18); CALCIUM LEVEL 9.7 MG/DL (8.5-10.1); CARBON DIOXIDE LEVEL 28 MEQ/L (21-32); CHLORIDE LEVEL 105 MEQ/L (98-107); CREATININE FOR GFR 0.84 MG/DL (0.55-1.30); GLOMERULAR FILTRATION RATE > 60.0 (>51); GLUCOSE, FASTING 126 MG/DL (70-100); SODIUM LEVEL 138 MEQ/L (136-145); TOTAL PROTEIN 7.5 GM/DL (6.4-8.2)
[2021-07-10 14:45] LABS: TOTAL 25(OH) VITAMIN D 35.5 NG/ML (30.0-100.0)
== END ==
LOC: M PLALAB 09:32
PROVIDERS: ATTEND Nurse Practitioner Family
DX: E11.9 Type 2 diabetes mellitus without complications (principal); E55.9 Vitamin D deficiency, unspecified

== ENCOUNTER → 2022-01-04 | Outpatient (CLI) | payer BC ==
[~2022-01-04] MED LIST changes: -OMEP-221 PO; +OMEP40CA5 PO
[2022-01-04 16:57] LABS: ALBUMIN 4.1 GM/DL (3.2-5.2); ALT/SGPT 40 U/L (12-78); BILIRUBIN,TOTAL 0.5 MG/DL (0.2-1.0); BLOOD UREA NITROGEN 9 MG/DL (7-18); CALCIUM LEVEL 9.1 MG/DL (8.5-10.1); CARBON DIOXIDE LEVEL 29 MEQ/L (21-32); CHLORIDE LEVEL 107 MEQ/L (98-107); CREATININE FOR GFR 0.69 MG/DL (0.55-1.30); GLOMERULAR FILTRATION RATE > 60.0 (>51); GLUCOSE, FASTING 92 MG/DL (70-100); SODIUM LEVEL 140 MEQ/L (136-145); TOTAL PROTEIN 6.7 GM/DL (6.4-8.2)
[2022-01-04 17:35] LABS: HEMOGLOBIN A1c 10.9 %
== END ==
LOC: M PLALAB 14:54
PROVIDERS: ATTEND Nurse Practitioner Family
DX: E11.9 Type 2 diabetes mellitus without complications (principal)

== ENCOUNTER → 2022-04-27 | Outpatient (CLI) | payer BC ==
[2022-04-27 17:04] LABS: ALBUMIN 4.1 GM/DL (3.2-5.2); ALT/SGPT 33 U/L (12-78); BILIRUBIN,TOTAL 0.4 MG/DL (0.2-1.0); BLOOD UREA NITROGEN 8 MG/DL (7-18); CALCIUM LEVEL 9.8 MG/DL (8.5-10.1); CARBON DIOXIDE LEVEL 27 MEQ/L (21-32); CHLORIDE LEVEL 100 MEQ/L (98-107); CHOLESTEROL LEVEL 181 MG/DL (<200); CHOLESTEROL RISK RATIO 4.414 (<5); CREATININE FOR GFR 0.65 MG/DL (0.55-1.30); GLOMERULAR FILTRATION RATE > 60.0 (>51); GLUCOSE, FASTING 219 MG/DL (70-100); HDL CHOLESTEROL 41 MG/DL (>40); LDL CHOLESTEROL 120 MG/DL (<100); MAGNESIUM LEVEL 1.9 MG/DL (1.8-2.4); NON-HDL-C 140 MG/DL; POTASSIUM SERUM 4.6 MEQ/L (3.5-5.1); SODIUM LEVEL 135 MEQ/L (136-145); TOTAL PROTEIN 7.2 GM/DL (6.4-8.2); TRIGLYCERIDES LEVEL 99 MG/DL (<150)
[2022-04-27 17:28] LABS: CREATININE, URINE < 13.0 MG/DL; MALB URINE SIEMENS < 5.0 MG/L
[2022-04-27 17:40] LABS: TOTAL 25(OH) VITAMIN D 33.9 NG/ML (30.0-100.0)
== END ==
LOC: M PLALAB 12:22
PROVIDERS: ATTEND Nurse Practitioner Adult Health
DX: E78.2 Mixed hyperlipidemia (principal); K21.9 Gastro-esophageal reflux disease without esophagitis; E11.65 Type 2 diabetes mellitus with hyperglycemia

== ENCOUNTER → 2022-07-30 | Outpatient (CLI) | payer BC ==
[2022-07-30 17:33] LABS: CREATININE, URINE 44.2 MG/DL; MALB URINE SIEMENS 5.5 MG/L; MAU/CREAT RATIO 12.4 MCG/MG (0.0-30.0)
[2022-07-30 17:55] LABS: ALBUMIN 3.9 GM/DL (3.2-5.2); ALT/SGPT 28 U/L (12-78); BILIRUBIN,TOTAL 0.5 MG/DL (0.2-1.0); BLOOD UREA NITROGEN 11 MG/DL (7-18); CALCIUM LEVEL 9.7 MG/DL (8.5-10.1); CARBON DIOXIDE LEVEL 26 MEQ/L (21-32); CHLORIDE LEVEL 101 MEQ/L (98-107); CHOLESTEROL LEVEL 178 MG/DL (<200); CHOLESTEROL RISK RATIO 4.564 (<5); CREATININE FOR GFR 0.82 MG/DL (0.55-1.30); GLOMERULAR FILTRATION RATE > 60.0 (>51); GLUCOSE, FASTING 321 MG/DL (70-100); HDL CHOLESTEROL 39 MG/DL (>40); LDL CHOLESTEROL 117 MG/DL (<100); NON-HDL-C 139 MG/DL; POTASSIUM SERUM 5.2 MEQ/L (3.5-5.1); SODIUM LEVEL 134 MEQ/L (136-145); TOTAL 25(OH) VITAMIN D 53.5 NG/ML (30.0-100.0); TOTAL PROTEIN 6.7 GM/DL (6.4-8.2); TRIGLYCERIDES LEVEL 109 MG/DL (<150)
[2022-07-30 23:03] LABS: HEMOGLOBIN A1c 11.2 %
== END ==
LOC: M PLALAB 12:42
PROVIDERS: ATTEND Nurse Practitioner Adult Health
DX: E11.65 Type 2 diabetes mellitus with hyperglycemia (principal); E78.5 Hyperlipidemia, unspecified; E55.9 Vitamin D deficiency, unspecified; Z13.29 Encounter for screening for other suspected endocrine disorder

== ENCOUNTER 2022-09-15 12:02 | Emergency (ER) | payer OTHER, BC ==
[~2022-09-15] VITALS: Ht 154.9 cm; Wt 69.5 kg
[2022-09-15 12:03] VITALS: BP 135/79
[2022-09-15] MEDS ORDERED: ERGO500029 (12:50)
[2022-09-15] MEDS ORDERED: LEVE1INJ5 (12:50)
[2022-09-15] MEDS ORDERED: PANT40TA29 (12:50)
[2022-09-15] MEDS ORDERED: GLIP5TAB20 (12:50)
[2022-09-15] MEDS ORDERED: JARD1TAB (12:50)
[2022-09-15] MEDS ORDERED: PERCOCET 5MG/325MG TAB PO ONE (13:35)
[2022-09-15] MEDS ORDERED: PERC5TAB12 PO (13:46)
== END 2022-09-15 14:06 | disposition home or self-care (01) ==
LOC: M ED 12:02
DX: S82.032A Displaced transverse fracture of left patella, initial encounter for closed fracture (principal); W01.0XXA Fall on same level from slipping, tripping and stumbling without subsequent striking against object, initial encounter; Y99.0 Civilian activity done for income or pay; E11.9 Type 2 diabetes mellitus without complications; I10 Essential (primary) hypertension; K21.9 Gastro-esophageal reflux disease without esophagitis; E78.5 Hyperlipidemia, unspecified; Z88.8 Allergy status to other drugs, medicaments and biological substances; Z79.4 Long term (current) use of insulin; Z79.899 Other long term (current) drug therapy

== ENCOUNTER → 2022-09-24 | Outpatient (CLI) | payer BC ==
[~2022-09-24] MED LIST changes: +ECOT81TA5 PO; +ERGO500029; +GLIP5TAB20 PO; +JARD1TAB PO; +LEVE1INJ5 SQ; +OXYC-517 PO; +PANT40TA29 PO; +PERC5TAB12 PO; +SENN8.6T28 PO
== END ==
LOC: M LABSMTC 11:33
PROVIDERS: ATTEND Anesthesiology
DX: Z01.818 Encounter for other preprocedural examination (principal)

== ENCOUNTER 2022-09-25 13:31 | Day surgery (SDC) | payer BC ==
[~2022-09-25] VITALS: Ht 154.9 cm; Wt 69.4 kg
[~2022-09-25 13:31] MED LIST changes: +ACETAMINOPHEN 500 MG TAB PO ONE; +CelecoXIB 400 MG CAP PO ONE; -ECOT81TA5 PO; +GABAPENTIN 300 MG CAP PO ONE; +ONDANSETRON 4MG 2ML VIAL IV ONE; -OXYC-517 PO; -SENN8.6T28 PO; +ceFAZolin SOD 2 GM in IV 1 EA IV ONE
[2022-09-25] MEDS ORDERED: LR 1,000 ML IV SCH ×2 (13:50→19:20)
[2022-09-25] MEDS ORDERED: fentaNYL 100 MCG/2 ML INJECTION As Ordered ONE (15:30)
[2022-09-25] MEDS ORDERED: LIDOCAINE 2% 100MG/5ML SDV (FOR ANES.) As Ordered ONE (15:30)
[2022-09-25] MEDS ORDERED: MIDAZOLAM INJ 2MG/2ML VIAL As Ordered ONE (15:30)
[2022-09-25] MEDS ORDERED: ONDANSETRON 4MG 2ML VIAL As Ordered ONE (15:30)
[2022-09-25] MEDS ORDERED: propofoL 200 MG/20 ML VIAL As Ordered ONE ×2 (15:30→18:47)
[2022-09-25] MEDS ORDERED: HYDROmorphone HCL 2MG/ML 1ML VIAL As Ordered ONE (15:30)
[2022-09-25] MEDS ORDERED: ROCURONIUM BROMIDE 50MG/5ML VIAL As Ordered ONE (15:31)
[2022-09-25] MEDS ORDERED: BUPIVACAINE/EPIN 0.5% 30ML VIAL As Ordered ONE (17:06)
[2022-09-25] MEDS ORDERED: SUGAMMADEX SODIUM 500 MG/5 ML VIAL (BRIDION) As Ordered ONE (17:27)
[2022-09-25] MEDS ORDERED: LABETALOL 100MG/20ML VIAL As Ordered ONE (17:48)
[2022-09-25] MEDS ORDERED: KETOROLAC 60MG 2ML VIAL As Ordered ONE (18:51)
[2022-09-25] MEDS ORDERED: ECOT81TA5 PO (19:17)
[2022-09-25] MEDS ORDERED: SENN8.6T28 PO (19:17)
[2022-09-25] MEDS ORDERED: OXYC-517 PO (19:17)
[2022-09-25] MEDS ORDERED: ONDANSETRON 4MG 2ML VIAL IV PRN (19:20)
[2022-09-25] MEDS ORDERED: oxyCODONE 5MG TAB PO PRN (19:20)
[2022-09-25] MEDS: MORPHINE 2 MG/ML 1ML VIAL IV PRN ×2 (19:29→20:26)
[2022-09-25] MEDS: fentaNYL 100 MCG/2 ML INJECTION IV PRN ×4 (19:35→20:03)
[2022-09-25] MEDS ORDERED: hydrALAZINE 20MG/ML 1ML VIAL IV PRN (19:50)
[2022-09-25 20:45] VITALS: BP 159/80
== END 2022-09-25 21:25 | disposition home or self-care (01) ==
LOC: M SDC 13:31
PROVIDERS: ATTEND Orthopaedic Surgery Adult Reconstructive Orthopaedic Surgery
DX: S82.002A Unspecified fracture of left patella, initial encounter for closed fracture (principal); W19.XXXA Unspecified fall, initial encounter; Y92.129 Unspecified place in nursing home as the place of occurrence of the external cause; Y99.0 Civilian activity done for income or pay; E11.9 Type 2 diabetes mellitus without complications; I10 Essential (primary) hypertension; E78.5 Hyperlipidemia, unspecified; F41.9 Anxiety disorder, unspecified; K21.9 Gastro-esophageal reflux disease without esophagitis; Z79.899 Other long term (current) drug therapy; Z79.84 Long term (current) use of oral hypoglycemic drugs; F17.210 Nicotine dependence, cigarettes, uncomplicated; Z88.8 Allergy status to other drugs, medicaments and biological substances
CPT/HCPCS: 27524; 76000; 93005; C1751; J1100; J2405

== ENCOUNTER 2022-10-22 14:12 | Outpatient (RCR) | payer BC, OTHER ==
[~2022-10-22 14:12] MED LIST changes: -ACETAMINOPHEN 500 MG TAB PO ONE; -CelecoXIB 400 MG CAP PO ONE; +ECOT81TA5 PO; -GABAPENTIN 300 MG CAP PO ONE; -ONDANSETRON 4MG 2ML VIAL IV ONE; +OXYC-517 PO; +SENN8.6T28 PO; -ceFAZolin SOD 2 GM in IV 1 EA IV ONE
== END 2022-10-23 ==
LOC: M PT 14:12
PROVIDERS: ATTEND Orthopaedic Surgery Adult Reconstructive Orthopaedic Surgery
DX: Z51.89 Encounter for other specified aftercare (principal); Z98.890 Other specified postprocedural states

== ENCOUNTER 2022-11-19 13:42 | Outpatient (RCR) | payer OTHER ==
[~2022-11-19 13:42] MED LIST changes: +INSU100I6 SQ; -LEVE1INJ5 SQ
== END 2022-11-20 ==
LOC: M PT 13:42
PROVIDERS: ATTEND Orthopaedic Surgery Adult Reconstructive Orthopaedic Surgery
DX: S86.9 Injury of unspecified muscle and tendon at lower leg level (principal); Z47.89 Encounter for other orthopedic aftercare

== ENCOUNTER → 2022-12-06 | Outpatient (CLI) | payer OTHER | LOC: M SOG 10:37 | PROVIDERS: ATTEND Orthopaedic Surgery Adult Reconstructive Orthopaedic Surgery | DX: S82.042D Displaced comminuted fracture of left patella, subsequent encounter for closed fracture with routine healing (principal); W18.30XD Fall on same level, unspecified, subsequent encounter; Y92.009 Unspecified place in unspecified non-institutional (private) residence as the place of occurrence of the external cause ==

== ENCOUNTER 2022-12-10 12:49 | Outpatient (RCR) | payer OTHER | END 2022-12-21 | LOC: M PT 12:49 | PROVIDERS: ATTEND Orthopaedic Surgery Adult Reconstructive Orthopaedic Surgery | DX: Z98.890 Other specified postprocedural states (principal); Z47.89 Encounter for other orthopedic aftercare; S86.812D Strain of other muscle(s) and tendon(s) at lower leg level, left leg, subsequent encounter ==

== ENCOUNTER → 2022-12-14 | Outpatient (CLI) | payer BC ==
[2022-12-14 14:58] LABS: CREATININE, URINE 71.9 MG/DL
[2022-12-14 14:59] LABS: MALB URINE SIEMENS < 3.0 MG/L; MAU/CREAT RATIO 4.1 MCG/MG (0.0-30.0)
[2022-12-14 15:01] LABS: ALBUMIN 3.9 G/DL (3.2-5.2); ALKALINE PHOSPHATASE 130 U/L (46-116); ALT/SGPT 33 U/L (7.0-40); AST/SGOT 17 U/L (<34); BILIRUBIN,TOTAL 0.4 MG/DL (0.3-1.2); BLOOD UREA NITROGEN 7 MG/DL (9-23); CALCIUM LEVEL 9.1 MG/DL (8.5-10.1); CARBON DIOXIDE LEVEL 28 MMOL/L (20-31); CHLORIDE LEVEL 98 MMOL/L (98-107); CHOLESTEROL LEVEL 180 MG/DL (<200); CHOLESTEROL RISK RATIO 5.47 (<5); CREATININE FOR GFR 0.52 MG/DL (0.55-1.30); GLOMERULAR FILTRATION RATE > 60.0 (>51); GLUCOSE, FASTING 314 MG/DL (60-100); HDL CHOLESTEROL 32.9 MG/DL (>40); LDL CHOLESTEROL 112.9 MG/DL (<100); NON-HDL-C 147.1 MG/DL; POTASSIUM SERUM 5.1 MMOL/L (3.5-5.1); SODIUM LEVEL 131 MMOL/L (136-145); TOTAL PROTEIN 6.3 G/DL (5.7-8.2); TRIGLYCERIDES LEVEL 171 MG/DL (<150)
[2022-12-14 15:03] LABS: TOTAL 25(OH) VITAMIN D 27.7 NG/ML (20.0-100.0)
[2022-12-14 15:18] LABS: HEMOGLOBIN A1c 12.9 % (4.0-6.0)
== END ==
LOC: M PLALAB 10:47
PROVIDERS: ATTEND Nurse Practitioner Adult Health
DX: E11.65 Type 2 diabetes mellitus with hyperglycemia (principal); E78.2 Mixed hyperlipidemia; E55.9 Vitamin D deficiency, unspecified

== ENCOUNTER → 2023-01-07 | Outpatient (CLI) | payer BC | LOC: M WHC 15:53 | PROVIDERS: ATTEND Nurse Practitioner Adult Health | DX: Z12.31 Encounter for screening mammogram for malignant neoplasm of breast (principal) ==

== ENCOUNTER → 2023-03-18 | Outpatient (CLI) | payer BC ==
[2023-03-18 19:23] LABS: FREE T4 0.96 NG/DL (0.89-1.76); THYROID STIMULATING HORMONE 1.133 uIU/ML (0.55-4.78)
[2023-03-18 19:24] LABS: TOTAL 25(OH) VITAMIN D 74.4 NG/ML (20.0-100.0)
[2023-03-18 19:25] LABS: ALBUMIN 4.2 G/DL (3.2-5.2); ALKALINE PHOSPHATASE 80 U/L (46-116); ALT/SGPT 25 U/L (7.0-40); AST/SGOT 15 U/L (<34); BILIRUBIN,TOTAL 0.5 MG/DL (0.3-1.2); BLOOD UREA NITROGEN 14 MG/DL (9-23); CALCIUM LEVEL 9.2 MG/DL (8.5-10.1); CARBON DIOXIDE LEVEL 26 MMOL/L (20-31); CHLORIDE LEVEL 105 MMOL/L (98-107); CHOLESTEROL LEVEL 149 MG/DL (<200); CREATININE FOR GFR 0.55 MG/DL (0.55-1.30); GLOMERULAR FILTRATION RATE > 60.0 (>51); GLUCOSE, FASTING 100 MG/DL (60-100); HDL CHOLESTEROL 38.2 MG/DL (>40); LDL CHOLESTEROL 86.8 MG/DL (<100); MAGNESIUM LEVEL 1.7 MG/DL (1.8-2.4); NON-HDL-C 110.8 MG/DL; POTASSIUM SERUM 4.3 MMOL/L (3.5-5.1); SODIUM LEVEL 138 MMOL/L (136-145); TOTAL PROTEIN 6.4 G/DL (5.7-8.2); TRIGLYCERIDES LEVEL 120 MG/DL (<150)
[2023-03-18 19:29] LABS: HEMOGLOBIN A1c 9.9 % (4.0-6.0)
== END ==
LOC: M WUC 13:29
PROVIDERS: ATTEND Nurse Practitioner Adult Health
DX: E11.65 Type 2 diabetes mellitus with hyperglycemia (principal); E78.2 Mixed hyperlipidemia; K21.9 Gastro-esophageal reflux disease without esophagitis; E55.9 Vitamin D deficiency, unspecified

== ENCOUNTER → 2023-08-23 | Outpatient (REF) | payer BC ==
[2023-08-23 17:08] LABS: HEMOGLOBIN A1c 9.2 % (4.0-6.0)
[2023-08-23 17:17] LABS: ALBUMIN 4.2 G/DL (3.2-5.2); ALKALINE PHOSPHATASE 72 U/L (46-116); ALT/SGPT 27 U/L (7.0-40); AST/SGOT 16 U/L (<34); BILIRUBIN,TOTAL 0.5 MG/DL (0.3-1.2); BLOOD UREA NITROGEN 11 MG/DL (9-23); CALCIUM LEVEL 9.5 MG/DL (8.5-10.1); CARBON DIOXIDE LEVEL 28 MMOL/L (20-31); CHLORIDE LEVEL 103 MMOL/L (98-107); CREATININE FOR GFR 0.56 MG/DL (0.55-1.30); GLOMERULAR FILTRATION RATE > 60.0 (>51); GLUCOSE, FASTING 106 MG/DL (60-100); POTASSIUM SERUM 4.3 MMOL/L (3.5-5.1); SODIUM LEVEL 138 MMOL/L (136-145); TOTAL PROTEIN 6.8 G/DL (5.7-8.2)
== END ==
LOC: M LABDRAWP 15:38
PROVIDERS: ATTEND Nurse Practitioner Adult Health
DX: E11.65 Type 2 diabetes mellitus with hyperglycemia (principal)

== ENCOUNTER → 2023-11-29 | Outpatient (CLI) | payer BC ==
[2023-11-29 12:38] LABS: CREATININE, URINE 10.6 MG/DL; MALB URINE SIEMENS < 3.0 MG/L; MAU/CREAT RATIO 28.3 MCG/MG (0.0-30.0)
[2023-11-29 12:41] LABS: FREE T4 0.98 NG/DL (0.89-1.76); THYROID STIMULATING HORMONE 1.519 uIU/ML (0.55-4.78)
[2023-11-29 12:42] LABS: ALBUMIN 4.1 G/DL (3.2-5.2); ALKALINE PHOSPHATASE 92 U/L (46-116); ALT/SGPT 36 U/L (7.0-40); AST/SGOT 20 U/L (<34); BILIRUBIN,TOTAL 0.5 MG/DL (0.3-1.2); BLOOD UREA NITROGEN 10 MG/DL (9-23); CALCIUM LEVEL 9.1 MG/DL (8.5-10.1); CARBON DIOXIDE LEVEL 28 MMOL/L (20-31); CHLORIDE LEVEL 107 MMOL/L (98-107); CHOLESTEROL LEVEL 144 MG/DL (<200); CHOLESTEROL RISK RATIO 3.17 (<5); CREATININE FOR GFR 0.52 MG/DL (0.55-1.30); GLOMERULAR FILTRATION RATE > 60.0 (>51); GLUCOSE, FASTING 113 MG/DL (60-100); HDL CHOLESTEROL 45.4 MG/DL (>40); LDL CHOLESTEROL 85.6 MG/DL (<100); NON-HDL-C 98.6 MG/DL; POTASSIUM SERUM 4.5 MMOL/L (3.5-5.1); SODIUM LEVEL 139 MMOL/L (136-145); TOTAL PROTEIN 6.6 G/DL (5.7-8.2); TRIGLYCERIDES LEVEL 65 MG/DL (<150)
[2023-11-29 12:43] LABS: TOTAL 25(OH) VITAMIN D 67.6 NG/ML (20.0-100.0)
[2023-11-29 12:49] LABS: HEMOGLOBIN A1c 10.4 % (4.0-6.0)
== END ==
LOC: M WUC 10:09
PROVIDERS: ATTEND Nurse Practitioner Adult Health
DX: E11.65 Type 2 diabetes mellitus with hyperglycemia (principal); E78.2 Mixed hyperlipidemia; K21.9 Gastro-esophageal reflux disease without esophagitis; Z13.29 Encounter for screening for other suspected endocrine disorder; E55.9 Vitamin D deficiency, unspecified

== ENCOUNTER → 2024-02-27 | Outpatient (CLI) | payer BC ==
[2024-02-27 16:10] LABS: ALBUMIN 4.3 G/DL (3.2-5.2); ALKALINE PHOSPHATASE 79 U/L (46-116); ALT/SGPT 31 U/L (7.0-40); AST/SGOT 15 U/L (<34); BILIRUBIN,TOTAL 0.5 MG/DL (0.3-1.2); BLOOD UREA NITROGEN 14 MG/DL (9-23); CALCIUM LEVEL 9.8 MG/DL (8.5-10.1); CARBON DIOXIDE LEVEL 28 MMOL/L (20-31); CHLORIDE LEVEL 107 MMOL/L (98-107); CHOLESTEROL LEVEL 145 MG/DL (<200); CHOLESTEROL RISK RATIO 3.49 (<5); CREATININE FOR GFR 0.66 MG/DL (0.55-1.30); GLOMERULAR FILTRATION RATE > 60.0 (>51); GLUCOSE, FASTING 66 MG/DL (60-100); HDL CHOLESTEROL 41.5 MG/DL (>40); LDL CHOLESTEROL 82.7 MG/DL (<100); NON-HDL-C 103.5 MG/DL; POTASSIUM SERUM 4.1 MMOL/L (3.5-5.1); SODIUM LEVEL 140 MMOL/L (136-145); TOTAL PROTEIN 6.8 G/DL (5.7-8.2); TRIGLYCERIDES LEVEL 104 MG/DL (<150)
[2024-02-27 16:11] LABS: THYROID STIMULATING HORMONE 1.869 uIU/ML (0.55-4.78); TOTAL 25(OH) VITAMIN D 50.4 NG/ML (20.0-100.0)
[2024-02-27 16:12] LABS: FREE T4 1.03 NG/DL (0.89-1.76)
[2024-02-27 16:37] LABS: HEMOGLOBIN A1c 9.8 % (4.0-6.0)
== END ==
LOC: M PLALAB 14:06
PROVIDERS: ATTEND Nurse Practitioner Adult Health
DX: E11.65 Type 2 diabetes mellitus with hyperglycemia (principal); E78.2 Mixed hyperlipidemia; E55.9 Vitamin D deficiency, unspecified

== ENCOUNTER → 2024-06-03 | Outpatient (CLI) | payer BC ==
[2024-06-03 10:29] LABS: ALBUMIN 4.6 G/DL (3.2-5.2); ALKALINE PHOSPHATASE 84 U/L (46-116); ALT/SGPT 39 U/L (7.0-40); AST/SGOT 18 U/L (<34); BILIRUBIN,TOTAL 0.6 MG/DL (0.3-1.2); BLOOD UREA NITROGEN 11 MG/DL (9-23); CALCIUM LEVEL 9.8 MG/DL (8.5-10.1); CARBON DIOXIDE LEVEL 26 MMOL/L (20-31); CHLORIDE LEVEL 106 MMOL/L (98-107); CHOLESTEROL LEVEL 191 MG/DL (<200); CHOLESTEROL RISK RATIO 5.35 (<5); CREATININE FOR GFR 0.62 MG/DL (0.55-1.30); GLOMERULAR FILTRATION RATE > 60.0 (>51); GLUCOSE, FASTING 183 MG/DL (60-100); HDL CHOLESTEROL 35.7 MG/DL (>40); LDL CHOLESTEROL 130.5 MG/DL (<100); MAGNESIUM LEVEL 1.8 MG/DL (1.8-2.4); NON-HDL-C 155.3 MG/DL; POTASSIUM SERUM 4.4 MMOL/L (3.5-5.1); SODIUM LEVEL 136 MMOL/L (136-145); TOTAL PROTEIN 7.1 G/DL (5.7-8.2); TRIGLYCERIDES LEVEL 124 MG/DL (<150)
[2024-06-03 10:46] LABS: CREATININE, URINE 27.3 MG/DL
[2024-06-03 10:47] LABS: MALB URINE SIEMENS < 3.0 MG/L; MAU/CREAT RATIO 10.9 MCG/MG (0.0-30.0)
[2024-06-03 10:55] LABS: HEMOGLOBIN A1c 9.7 % (4.0-6.0)
== END ==
LOC: M PLALAB 08:24
PROVIDERS: ATTEND Nurse Practitioner Adult Health
DX: E78.2 Mixed hyperlipidemia (principal); K21.9 Gastro-esophageal reflux disease without esophagitis; E11.65 Type 2 diabetes mellitus with hyperglycemia

== ENCOUNTER → 2024-07-10 | Outpatient (CLI) | payer BC | LOC: M WHC 15:04 | PROVIDERS: ATTEND Nurse Practitioner Adult Health | DX: Z12.31 Encounter for screening mammogram for malignant neoplasm of breast (principal); R92.313 Mammographic fatty tissue density, bilateral breasts ==

== ENCOUNTER → 2024-08-31 | Outpatient (CLI) | payer BC ==
[2024-08-31 13:46] LABS: HEMOGLOBIN A1c 11.4 % (4.0-6.0)
[2024-08-31 13:58] LABS: ALBUMIN 4.4 G/DL (3.2-5.2); ALKALINE PHOSPHATASE 89 U/L (35-104); ALT/SGPT 31 U/L (7.0-40); AST/SGOT 12 U/L (<34); BILIRUBIN,TOTAL 0.6 MG/DL (0.3-1.2); BLOOD UREA NITROGEN 12 MG/DL (9-23); CALCIUM LEVEL 10.5 MG/DL (8.5-10.1); CARBON DIOXIDE LEVEL 28 MMOL/L (20-31); CHLORIDE LEVEL 103 MMOL/L (98-107); CHOLESTEROL LEVEL 133 MG/DL (<200); CHOLESTEROL RISK RATIO 3.46 (<5); CREATININE FOR GFR 0.52 MG/DL (0.55-1.30); GLOMERULAR FILTRATION RATE > 60.0 (>51); GLUCOSE, FASTING 240 MG/DL (60-100); HDL CHOLESTEROL 38.4 MG/DL (>40); LDL CHOLESTEROL 69.4 MG/DL (<100); MAGNESIUM LEVEL 1.9 MG/DL (1.8-2.4); NON-HDL-C 94.6 MG/DL; SODIUM LEVEL 137 MMOL/L (136-145); TOTAL PROTEIN 7.3 G/DL (5.7-8.2); TRIGLYCERIDES LEVEL 126 MG/DL (<150)
[2024-08-31 13:59] LABS: THYROID STIMULATING HORMONE 2.266 uIU/ML (0.55-4.78)
[2024-08-31 14:00] LABS: TOTAL 25(OH) VITAMIN D 69.3 NG/ML (20.0-100.0)
[2024-08-31 14:01] LABS: FREE T4 1.26 NG/DL (0.89-1.76)
== END ==
LOC: M PLALAB 11:09
PROVIDERS: ATTEND Nurse Practitioner Adult Health
DX: E11.65 Type 2 diabetes mellitus with hyperglycemia (principal); E78.2 Mixed hyperlipidemia; K21.9 Gastro-esophageal reflux disease without esophagitis; E55.9 Vitamin D deficiency, unspecified

== ENCOUNTER → 2024-12-14 | Outpatient (CLI) | payer BC ==
[~2024-12-14] MED LIST changes: +GLIP-318 PO; -GLIP5TAB20 PO
[2024-12-14 13:44] LABS: ALBUMIN 4.5 G/DL (3.2-5.2); ALKALINE PHOSPHATASE 79 U/L (35-104); ALT/SGPT 33 U/L (7.0-40); AST/SGOT 18 U/L (<34); BILIRUBIN,TOTAL 0.5 MG/DL (0.3-1.2); BLOOD UREA NITROGEN 13 MG/DL (9-23); CARBON DIOXIDE LEVEL 28 MMOL/L (20-31); CHLORIDE LEVEL 103 MMOL/L (98-107); CHOLESTEROL LEVEL 128 MG/DL (<200); CHOLESTEROL RISK RATIO 3.29 (<5); CREATININE FOR GFR 0.56 MG/DL (0.55-1.30); GLOMERULAR FILTRATION RATE > 60.0 (>51); GLUCOSE, FASTING 192 MG/DL (60-100); HDL CHOLESTEROL 38.8 MG/DL (>40); LDL CHOLESTEROL 62.6 MG/DL (<100); NON-HDL-C 89.2 MG/DL; POTASSIUM SERUM 4.8 MMOL/L (3.5-5.1); SODIUM LEVEL 137 MMOL/L (136-145); TOTAL PROTEIN 7.2 G/DL (5.7-8.2); TRIGLYCERIDES LEVEL 133 MG/DL (<150)
[2024-12-14 14:04] LABS: HEMOGLOBIN A1c 11.1 % (4.0-6.0)
== END ==
LOC: M PLALAB 11:12
PROVIDERS: ATTEND Nurse Practitioner Adult Health
DX: E55.9 Vitamin D deficiency, unspecified (principal); E11.65 Type 2 diabetes mellitus with hyperglycemia

== ENCOUNTER → 2025-06-29 | Outpatient (CLI) | payer BC ==
[2025-06-29 12:50] LABS: ALT/SGPT 30 U/L (7.0-40); AST/SGOT 22 U/L (<34); CALCIUM LEVEL 9.9 MG/DL (8.5-10.1); CARBON DIOXIDE LEVEL 28 MMOL/L (20-31); CHLORIDE LEVEL 103 MMOL/L (98-107); CHOLESTEROL LEVEL 118 MG/DL (<200); CHOLESTEROL RISK RATIO 3.13 (<5); CREATININE FOR GFR 0.67 MG/DL (0.55-1.30); FREE T4 1.23 NG/DL (0.89-1.76); GLOMERULAR FILTRATION RATE > 90.0 (>51); LDL CHOLESTEROL 62.8 MG/DL (<100); MAGNESIUM LEVEL 2.1 MG/DL (1.8-2.4); NON-HDL-C 80.4 MG/DL; POTASSIUM SERUM 5.0 MMOL/L (3.5-5.1); SODIUM LEVEL 138 MMOL/L (136-145); TRIGLYCERIDES LEVEL 88 MG/DL (<150)
[2025-06-29 14:21] LABS: CREATININE, URINE 11.0 MG/DL; MALB URINE SIEMENS < 3.0 MG/L
[2025-06-29 14:56] LABS: ESTIMATED AVERAGE GLUCOSE 258.0 MG/DL (60-110)
== END ==
LOC: M PLALAB 07:32
PROVIDERS: ATTEND Nurse Practitioner Adult Health
DX: E11.65 Type 2 diabetes mellitus with hyperglycemia (principal); E78.2 Mixed hyperlipidemia; K21.9 Gastro-esophageal reflux disease without esophagitis; E55.9 Vitamin D deficiency, unspecified